=== PATIENT | male | born 1945 | race American Indian/Alaskan Native ===

== ENCOUNTER 2020-08-31 11:35 | Inpatient (IN) | payer MEDICARE ==
[2020-08-31] MEDS ORDERED: hydrALAZINE 20 MG/1 ML INJ IV PRN (12:50)
[2020-08-31] MEDS ORDERED: ALBUTEROL 2.5 MG/3 ML NEBU IH PRN (12:50)
[2020-08-31] MEDS ORDERED: ONDANSETRON 4 MG ODT TAB PO PRN (12:50)
[2020-08-31] MEDS ORDERED: POLYETHYLENE GLYCOL 3350 17 GM POWDER PO PRN (12:50)
[2020-08-31] MEDS: ENOXAPARIN 40 MG/0.4 ML INJ SUB-Q SCH (22:05)
[2020-08-31] MEDS: levETIRAcetam 500 MG TAB PO SCH (22:06)
[2020-08-31] MEDS: ACETAMINOPHEN 325 MG TAB PO PRN (22:06)
[2020-09-01 05:00] LABS: Hematocrit 33.3 % (35.5-45.6); Mean Corpuscular HGB Conc 33 % (32-34); Mean Corpuscular Volume 87 fl (84-94); Platelet Count 213 K/mm3 (140-440); Red Blood Count 3.82 M/mm3 (3.65-5.03); Red Cell Distribution Width 15.2 % (13.2-15.2)
[2020-09-01 05:19] LABS: Alanine Aminotransferase 47 units/L (7-56); Albumin 3.2 g/dL (3.9-5); Blood Urea Nitrogen 22 mg/dL (9-20); Calcium 8.5 mg/dL (8.4-10.2); Hemolysis Index 4
[2020-09-01 05:20] LABS: BUN/Creatinine Ratio 31
[2020-09-01 06:09] LABS: Total Cells Counted 100
[2020-09-01 06:10] LABS: Large Platelets Few; Platelet Estimate Consistent w Auto; RBC Morphology Normal
[2020-09-01] MEDS: levETIRAcetam 500 MG TAB PO SCH ×2 (07:42→23:31)
[2020-09-01] MEDS: ASPIRIN EC 81 MG TAB PO SCH (07:42)
[2020-09-01] MEDS: NICOTINE 7 MG/24 HR PATCH TD SCH (07:42)
[2020-09-01] MEDS: LISINOPRIL 20 MG TAB PO SCH (07:43)
[2020-09-01] MEDS: amLODIPine 10 MG TAB PO SCH (07:43)
[2020-09-01] MEDS ORDERED: METOPROLOL SUCCINATE XL 50 MG TAB PO SCH (08:00)
--- NOTE | 2020-09-01 09:11 | History and Physical Report ---
History of Present Illness Date: 09/01/20 Date of admission: 08/31/20 12:42 Chief Complaint: CVA History of present illness: 75-year-old male who was admitted outside hospital after having new onset slurred speech and aphasia. 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 Currently undergoing home health physical therapy and is able to walk short distances with a walker. Work-up showed a subacute infarct in the right hemisphere on MRI brain. EEG showed disorganized tracings and the patient was started on Keppra. Apparently patient has a reaction to Lipitor and instead takes lovastatin. Patient also has BPH but does not tolerate Flomax. After the patient was medically stabilized they were transferred for further rehabilitation. All available medical records have been reviewed. Plan of care was discussed with patient. Approximately 45 minutes was invested reviewing all available records from the outside hospital. Unfortunately the patient was discharged to us yesterday with preliminary orders and an updated set of orders did come in with the EMS transportation. Medication and diet orders have been changed accordingly. Apparently metoprolol was stopped due to persistent bradycardia. Currently the patient does not show any signs of bradycardia but we will discontinue the metoprolol and monitor blood pressure and heart rate accordingly and restart if needed. Patient was also changed to mechanical soft diet with chopped meats which has been adjusted currently. This is after breakfast and the patient likely obtained a regular consistency meal for breakfast. Also after evaluating the patient became very obvious that the patient does have some level of dementia. He thinks that he is 72 years old, does not know the month or the year but can tell me that he was born in [birth year] (he is actually 75 years old). Uncertain of the rest of the information that he provided as to whether or not it is reliable. Will need to contact his daughter whom he states he lives with in order to confirm. Past History Past Medical History: hypertension, seizures, stroke, other (Dementia) Past Surgical History: No surgical history (Patient denies however not necessarily a good historian) Social history: lives with family, smoking (Patient states he quit however records show that he is still currently smoking.). denies: alcohol abuse (Occasional use) Family history: no significant family history (Patient denies but not a good historian) Medications and Allergies Allergies Allergy/AdvReac Type Severity Reaction Status Date / Time No Known Allergies Allergy Unverified 09/24/13 14:15 Home Medications Medication Instructions Recorded Confirmed Last Taken Type Polyvinyl Alcohol/Povidone/Pf 1 each OU BID 09/24/13 09/24/13 Unknown History [Refresh Classic Eye Drops 0.5/0.6%] Aspirin [Aspirin BABY CHEW TAB] 81 mg PO QDAY #30 tab.chew 10/16/13 Unknown Rx Famotidine [Pepcid] 20 mg PO DAILY #30 tablet 10/16/13 Unknown Rx Multivitamin Tab [Multiple Vitamin 1 each PO QDAY #30 tablet 10/16/13 Unknown Rx TAB (Theragran)] Rosuvastatin (Nf) [Crestor] 20 mg PO QHS #30 tablet 10/16/13 Unknown Rx Sennosides Tab [Senokot] 8.6 mg PO Q12H PRN #30 tablet 10/16/13 Unknown Rx amLODIPine 10 mg PO QDAY #30 tablet 10/16/13 Unknown Rx carvediloL [Coreg] 6.25 mg PO BID #60 tablet 10/16/13 Unknown Rx Active Meds: Active Medications Acetaminophen (Acetaminophen 325 Mg Tab) 650 mg PO Q6H PRN PRN Reason: Non Cardiac Pain or Temp>100.5 Last Admin: 08/31/20 22:06 Dose: 650 mg Documented by: Albuterol (Albuterol 2.5 Mg/3 Ml Nebu) 2.5 mg IH Q4HRT PRN PRN Reason: Shortness Of Breath Amlodipine Besylate (Amlodipine 10 Mg Tab) 10 mg PO QDAY [facility] Last Admin: 09/01/20 07:43 Dose: Not Given Documented by: Aspirin (Aspirin Ec 81 Mg Tab) 81 mg PO QDAY [facility] Last Admin: 09/01/20 07:42 Dose: 81 mg Documented by: Bisacodyl (Bisacodyl 10 Mg Rect Supp) 10 mg MO QDAY PRN PRN Reason: Constipation Enoxaparin Sodium (Enoxaparin 40 Mg/0.4 Ml Inj) 40 mg SUB-Q QDAY@2200 [facility]; Protocol Last Admin: 08/31/20 22:05 Dose: 40 mg Documented by: Hydralazine HCl (Hydralazine 20 Mg/1 Ml Inj) 10 mg IV Q4HR PRN PRN Reason: Hypertension Levetiracetam (Levetiracetam 500 Mg Tab) 500 mg PO BID [facility] Last Admin: 09/01/20 07:42 Dose: 500 mg Documented by: Lisinopril (Lisinopril 20 Mg Tab) 20 mg PO QDAY [facility] Last Admin: 09/01/20 07:43 Dose: Not Given Documented by: Metoprolol Succinate (Metoprolol Succinate Xl 50 Mg Tab) 50 mg PO QDAY [facility] Last Admin: 09/01/20 07:43 Dose: Not Given Documented by: Nicotine (Nicotine 7 Mg/24 Hr Patch) 7 mg TD QDAY [facility] Last Admin: 09/01/20 07:42 Dose: 7 mg Documented by: Ondansetron HCl (Ondansetron 4 Mg Odt Tab) 4 mg PO Q8H PRN PRN Reason: Nausea And Vomiting Polyethylene Glycol (Polyethylene Glycol 3350 17 Gm Powder) 17 gm PO QDAY PRN PRN Reason: Constipation Review of Systems All systems: negative (Rehab review of system) Constitutional: fatigue, weakness Ears, nose, mouth and throat: no decreased hearing, no vertigo Cardiovascular: no chest pain, no rapid/irregular heart beat Respiratory: no cough, no hemoptysis, no shortness of breath Gastrointestinal: no abdominal pain, no nausea, no vomiting, no diarrhea, no constipation Musculoskeletal: no arm numbness/tingling, no leg numbness/tingling Integumentary: no rash, no pruritis, no redness, no sores Neurological: weakness, seizures, lack of coordination, confusion, memory loss, gait dysfunction Psychiatric: memory loss, no hypersomnia Exam - Exam Narrative exam: MUSCULOSKELETAL SPECIALTY EXAM CONSTITUTIONAL: Well developed, well nourished, appropriately groomed, thin. LEFT hand dominant. LYMPHATIC: No appreciable abnormalities palpable in neck RESPIRATORY: Clear to auscultation bilaterally, no increased work of breathing CARDIOVASCULAR: Regular Rate/ Rhythm, no swelling, edema or tenderness in BUE or BLE. All extremities warm. GI: + bowel sounds, soft, NTTP, nondistended. INTEGUMENTARY: Normal, no lesion, rash, masses or bruising noted in extremities. MUSCULOSKELETAL: BUE and BLE normal without defect, crepitus, subluxation, effusion, arthritic changes or TTP. R 4/5 L 4/5 ROM slightly decreased in upper extremities and lower extremities, passive okay Tone no increased tone noted NEURO: Cranial nerves II through XII grossly intact Sensation slightly decreased on right, but uncertain of validity of patient's spine Reflexes 2+ bilaterally at biceps, brachioradialis and patella. No clonus at ankles. Coordination impaired in BUE. No tremor noted in 4 extremities. Naming and repetition intact. Follows 2 step commands. Aphasia not appreciated Dysarthria not appreciated Dysphagia present, patient still has food in his mouth from working with speech therapy earlier Neglect not appreciated POSTURE and GAIT: Sitting posture good. Balance appears decreased. Gait slow with narrow-base gai t and crouched knees. PSYCH: Alert, oriented x1, affect appears euthymic. Insight appears impaired. - Constitutional Vitals: Vital Signs - 12hr 08/31/20 09/01/20 09/01/20 21:46 04:19 07:25 Temperature 98.8 F 97.7 F 97.7 F Pulse Rate 85 76 76 Respiratory 20 16 16 Rate Blood Pressure 125/67 112/62 113/55 O2 Sat by Pulse 98 98 99 Oximetry 09/01/20 07:43 Temperature Pulse Rate 68 Respiratory Rate Blood Pressure 103/65 O2 Sat by Pulse Oximetry - Labs CBC & Chem 7: 09/01/20 04:22 09/01/20 04:22 Labs: Laboratory Results - last 72 hr 09/01/20 09/01/20 04:22 04:22 WBC 3.7 L RBC 3.82 Hgb 11.0 L Hct 33.3 L MCV 87 MCH 29 MCHC 33 RDW 15.2 Plt Count 213 Add Manual Diff Complete Total Counted 100 Seg Neutrophils % Gallery Director Seg Neuts % (Manual) 31.0 L Lymphocytes % (Manual) 56.0 H Monocytes % (Manual) 8.0 H Basophils % (Manual) 5.0 H Nucleated RBC % Not Reportable Seg Neutrophils # Man 1.1 L Band Neutrophils # 0.0 Lymphocytes # (Manual) 2.1 Abs React Lymphs (Man) 0.0 Monocytes # (Manual) 0.3 Eosinophils # (Manual) 0.0 Basophils # (Manual) 0.2 H Metamyelocytes # 0.0 Myelocytes # 0.0 Promyelocytes # 0.0 Blast Cells # 0.0 WBC Morphology Not Reportable Hypersegmented Neuts Not Reportable Hyposegmented Neuts Not Reportable Hypogranular Neuts Not Reportable Smudge Cells Not Reportable Toxic Granulation Not Reportable Toxic Vacuolation Not Reportable Dohle Bodies Not Reportable Pelger-Huet Anomaly Not Reportable Keli Rods Not Reportable Platelet Estimate Consistent w auto Clumped Platelets Not Reportable Plt Clumps, EDTA Not Reportable Large Platelets Few Giant Platelets Not Reportable Platelet Satelliting Not Reportable Plt Morphology Comment Not Reportable RBC Morphology Normal Dimorphic RBCs Not Reportable Polychromasia Not Reportable Hypochromasia Not Reportable Poikilocytosis Not Reportable Anisocytosis Not Reportable Microcytosis Not Reportable Macrocytosis Not Reportable Spherocytes Not Reportable Pappenheimer Bodies Not Reportable Sickle Cells Not Reportable Target Cells Not Reportable Tear Drop Cells Not Reportable Ovalocytes Not Reportable Helmet Cells Not Reportable Sand[place] Bodies Not Reportable [place] Rings Not Reportable Puja Cells Not Reportable Bite Cells Not Reportable Crenated Cell Not Reportable Elliptocytes Not Reportable Acanthocytes (Spur) Not Reportable Rouleaux Not Reportable Hemoglobin C Crystals Not Reportable Schistocytes Not Reportable Malaria parasites Not Reportable Benjamín Bodies Not Reportable Hem Pathologist Commnt No Sodium 137 Potassium 4.1 Chloride 101.2 Carbon Dioxide 29 Anion Gap 11 BUN 22 H Creatinine 0.7 L Estimated GFR > 60 BUN/Creatinine Ratio 31 Glucose 86 Calcium 8.5 Total Bilirubin 0.20 AST 46 H ALT 47 Alkaline Phosphatase 60 Total Protein 5.8 L Albumin 3.2 L Albumin/Globulin Ratio 1.2 Assessment and Plan Assessment and plan: Patient was assessed and evaluated for Acute Inpatient Rehab Unit. Due to the patients above-mentioned medical complexity, along with decreased functional mobility and self care, this patient continues to require and be a ppropriate for a comprehensive, multidisciplinary [id number] rehabilitation program. These needs cannot be met in an outpatient or other less intensive setting. The patient would continue to benefit from skilled therapy intervention for at least 3 hours per day, five days a week, with techni ques specific to the needs of the patient to improve function, activities of daily living, and reintegration into the community. The patient continues to require: -- OT to improve ROM, self-care, and learn use of adaptive equipment -- PT to improve strength and balance, functional transfers, and ambulation with energy conservation techniques to improve functional mobility -- TOOL CRIB LEAD to address cognitive deficits and swallowing ability -- 24 hour RN to ensure and prevent skin breakdown, promote progressive independence while ensuring safety, ensure education regarding medications, and incorporation of the rehabilitation at the bedside -- 24 hour Propagation Worker to coordinate this interdisciplinary program, and to manage/prevent complications as a result of the patients medical comorbidities. -Plan of care by day 4 -Weekly team conferences With such a program, there is a reasonable certainty that the goals individualized for this patient can be achieved within the specified length of stay. CVA, subacute: Continue Secondary Stroke Prevention (Antithrombotic, Statin (Goal LDL-C <70), BP control (Goal <140/90), GLU control (Goal A1c <7), and lifestyle modification). Monitor for recurrent stroke or post-stroke recrudescence. Continue neuromotor therapy as above. Family training when available. Monitor for post stroke depression, cognitive deficits, seizure, dysphagia, aphasia, shoulder hand syndrome, sensory deficits, spasticity, bowel/bladder deficits, sleep disturbance, vision deficits and DVT. Prognosis for recovery and Secondary Stroke Prevention discussed. Follow up with Neurology. No driving until cleared by Neurologist. Dysphagia: Continue speech therapy to improve safe swallowing and advance diet as needed. Patient did not initially have orders for dysphagia diet however these were received with the patient at a later time. Have adjusted meals and speech therapy has further adjusted the patient's diet to include nectar thick liquids. Hypertension: Continue medication. Monitor blood pressure. Adjust medications as needed for normotension. Hold for hypotension. Goal SBP <140, Seizure: Continue seizure precautions and Keppra. Monitor for any adverse even ts or seizure activity. Patient will need follow-up with neurologist as an outpatient. Anemia: Improving from outside hospital. Continue to monitor CBC and transfuse for hemoglobin less than 7. Normocytic anemia Protein calorie malnutrition: Consulted dietitian. We will continue supplementation once ordered and attempt to improve patient's nutritional status. Dementia: Diagnosis appears obvious. Will have speech therapy continue to work with the patient to improve his functioning and coping mechanisms. This was not a diagnosis which was previously disclosed to us and is not in his medical record that we have seen. Have first opportunity will discuss the diagnosis with the daughter so that she can have further follow-up with neurology as an outpatient for treatment and support guidelines. ADL dysfunction: OT will work on improving ability to perform ADLs (including assistive devices) to increase independence and decrease caregiver burden and improve functional transfers and mobility training. Difficulty walking: PT will work on gait training and proper use of assistive devices and advance as appropriate to use of stairs and outside ambulation on uneven surfaces. Unsteadiness on feet: PT will work on improving static and dynamic sitting and standing balance as well as proper use of assistive devices to decrease risk of falls. Abnormality of gait: PT will work to improve safety and efficiency of gait through neuromotor training and gait training along with instruction on proper use of assistive devices. Muscle weakness: PT & OT will work on strengthening exercises to improve functional strength including mixture of closed and open kinetic chain exercises. Debility: PT & OT will work on improving overall functional status to improve participation with ADLs, mobility and social involvement. Fatigue: PT & OT will work on improving endurance through aerobic exercises and therapeutic activity while monitoring patients tolerance for activity and vital signs as needed. DVT ppx: Lovenox Pain: Continue physical modalities in therapy and pain medications as needed to achieve functional pain control. Sleep: Monitor and address as needed. Bowel: Monitor and address as needed. Appetite: Monitor and address as needed. Discharge planning: Pending therapy progress and care plan meeting. Will continue discussion with therapy team, SW, patient and family. Restrictions/ Precautions: Falls, seizure, cognition WB status: FWB Functional Hx: ADLs: Independent Cognition: Independent Mobility: No AD Barriers to Discharge: Decreased mobility and ability to perform self care, balance deficits, weakness Estimated Length of Stay: 1418 days Discharge Destination: Home with family POST ADMISSION PHYSICIAN EVALUATION I have examined the patient and find that functional status, medical condition and appropriateness for IR[facility] admission are essentially unchanged from those described in the preadmission screening. Will monitor for worsening seizure acti vity, neurologic changes, posterior depression, shoulder-hand syndrome, stroke recrudescence DVT/PE, bowel and bladder complications and complications due to hypertension, anemia, malnutrition and electrolyte abnormalities. Will attempt to avoid occurrence of these issues or treat them if they present themselves.
[2020-09-01] MEDS: ENOXAPARIN 40 MG/0.4 ML INJ SUB-Q SCH (23:31)
[2020-09-02] MEDS: LISINOPRIL 20 MG TAB PO SCH (08:49)
[2020-09-02] MEDS: ASPIRIN EC 81 MG TAB PO SCH (08:49)
[2020-09-02] MEDS: amLODIPine 10 MG TAB PO SCH (08:49)
[2020-09-02] MEDS: levETIRAcetam 500 MG TAB PO SCH ×2 (08:50→21:35)
[2020-09-02] MEDS: NICOTINE 7 MG/24 HR PATCH TD SCH (08:50)
--- NOTE | 2020-09-02 12:05 | Progress Note ---
Subjective Date of service: 09/02/20 Principal diagnosis: CVA Interval history: 75-year-old male who was admitted outside hospital after having new onset slurred speech and aphasia. 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 Currently undergoing home health physical therapy and is able to walk short distances with a walker. Work-up showed a subacute infarct in the right hemisphere on MRI brain. EEG showed disorganized tracings and the patient was started on Keppra. Apparently patient has a reaction to Lipitor and instead takes lovastatin. Patient also has BPH but does not tolerate Flomax. After the patient was medically stabilized they were transferred for further rehabilitation. All available medical records have been reviewed. Plan of care was discussed with patient. Interval History: Patient is participating in therapy and making reasonable progress. Taking rest breaks as needed. +BM. Denies pain, palpitations, dyspnea, cough, N/V, weakness, or joint pain. CVA, subacute: Continue monitor patient and provide supportive care. Monitor for worsening neurologic condition, shoulder-hand syndrome, post drug depression other signs and symptoms indicative of need to evaluate patient again with advanced imaging. Continue secondary stroke prevention. Seizure disorder: Seizure precautions have been ordered, patient continues on Keppra. Will need to follow-up with neurology at discharge. No episodes of seizures to this point of the admission. Dysphagia: Patient's diet was downgraded by speech therapy yesterday after evaluation. We will continue the patient on current modified diet and adjust as able with speech therapy with a goal of returning back to normal diet if at all possible. Hypertension: Continue to monitor blood pressure with a goal of less than 140/90. Adjust medications as needed to reach goal while avoiding hypotension. Blood pressure is slightly high today, will monitor and look to adjust over the next couple of days if he does not normalize. Anemia: This has improved since outside hospital, will continue to monitor and possibly look for other avenues of treatment if the patient does not continue to improve with our next lab check. Normocytic currently Protein calorie malnutrition: Have requested dietitian evaluation. Will need to monitor the patient's oral intake is since he is on modified diet and ensure that he is getting enough nutrition, may need to order supplements but these will need to be thickened. Dementia: Appears to be an undiagnosed issue. Will attempt to call daughter today and speak with her concerning patient's prior functioning at home. Patient will need to follow-up with neurology as an outpatient for further tr eatment and work-up. All records, vitals, labs and medications were reviewed. No other issues per patient, nursing or therapy. Objective - Exam Narrative Exam: MUSCULOSKELETAL SPECIALTY EXAM CONSTITUTIONAL: Well developed, well nourished, appropriately groomed, thin. LEFT hand dominant. RESPIRATORY: Clear to auscultation bilaterally, no increased work of breathing CARDIOVASCULAR: Regular Rate/ Rhythm, no swelling, edema or tenderness in BUE or BLE. All extremities warm. GI: + bowel sounds, soft, NTTP, nondistended. INTEGUMENTARY: Normal, no lesion, rash, masses or bruising noted in extremities. MUSCULOSKELETAL: BUE and BLE normal without defect, crepitus, subluxation, effusion, arthritic changes or TTP. R 4/5 L 4/5 ROM slightly decreased in upper extremities and lower extremities, passive okay Tone no increased tone noted NEURO: Cranial nerves II through XII grossly intact Sensation slightly decreased on right, but uncertain of validity of patient's spine No tremor noted in 4 extremities. Naming and repetition intact. Follows 2 step commands. Aphasia not appreciated Dysarthria not appreciated Dysphagia present Neglect not appreciated POSTURE and GAIT: Sitting posture good. Balance appears decreased. Gait slow with narrow-base gait and crouched knees. PSYCH: Alert, oriented x1, affect appears euthymic. Insight appears impaired. - Constitutional Vitals: Vital Signs - 12hr 09/02/20 09/02/20 09/02/20 05:12 07:32 08:49 Temperature 97.6 F 97.5 F L Pulse Rate 83 84 99 H Respiratory 18 18 Rate Blood Pressure 146/68 159/78 Blood Pressure 125/64 [Right] O2 Sat by Pulse 99 95 Oximetry 09/02/20 11:49 Temperature Pulse Rate Respiratory 18 Rate Blood Pressure Blood Pressure [Right] O2 Sat by Pulse Oximetry - Allied health notes Allied health notes reviewed: nursing, PT, ST, OT FIMS assessment as documented by PT/OT/ST: Grooming Patient cleans teeth/dentures: Yes Patient byrne/brushes hair: Yes Patient washes, rinses and Yes dries face: Patient washes, rinses and Yes dries hands: Patient shaves: No Patient performs (no make-up/ 4/4 (100%) shaving): Grooming FIM Score 5. Supervision ([place] applies toothpaste or opens containers.) Toileting Patient able to: Adjust clothes before,Clean self,Adjust clothes after Patient able to perform: 3/3 (100%) Toileting FIM Score 4. Minimal Assistance (Patient = 75% or more. Needs touching.) Social interaction/Memory/Problem solving Social Interaction FIM Score 5. Supervision (Needs supv. <10%. Needs encouragement to participate.) Memory FIM Score 2. Maximal Assistance (Recognizes and remembers 25-49%.) Problem Solving FIM Score 2. Maximal Assistance (Solves problems 25-49% or needs restraint.) Transfers Mode of Locomotion: Wheelchair Bed/Chair/Wheelchair Transfers 4. Minimal Assistance (Patient = 75% or more. FIM Score Needs touching.) Patient transferred to: Shower Shower Transfers FIM Score 4. Minimal Assistance (Patient = 75% or more. Needs touching.) Locomotion- walk/wheelchair Ambulation Distance 25 Eating Eating FIM Score 5. Supervision/Set-Up (Needs help w/ containers, cutting meat, etc.) Dressing-Upper body Patient retrieves clothing No items: Patient applies/removes UE No: n/a prosthesis or orthosis: Upper Body Dressing FIM Score 5. Supv./Set-Up ([place] sets out clothes or applies pros./orth.) Dressing-lower body Patient retrieves clothing No items: Patient applies/removes LE No: n/a prosthesis or orthosis: Lower Body Dressing FIM Score 4. Minimal Assistance (Patient = 75% or more. Needs touching.) - Labs CBC & Chem 7: 09/01/20 04:22 09/01/20 04:22 Labs: Laboratory Results - last 72 hr 09/01/20 09/01/20 04:22 04:22 WBC 3.7 L RBC 3.82 Hgb 11.0 L Hct 33.3 L MCV 87 MCH 29 MCHC 33 RDW 15.2 Plt Count 213 Add Manual Diff Complete Total Counted 100 Seg Neutrophils % Safety Instruction Police Officer Seg Neuts % (Manual) 31.0 L Lymphocytes % (Manual) 56.0 H Monocytes % (Manual) 8.0 H Basophils % (Manual) 5.0 H Nucleated RBC % Not Reportable Seg Neutrophils # Man 1.1 L Band Neutrophils # 0.0 Lymphocytes # (Manual) 2.1 Abs React Lymphs (Man) 0.0 Monocytes # (Manual) 0.3 Eosinophils # (Manual) 0.0 Basophils # (Manual) 0.2 H Metamyelocytes # 0.0 Myelocytes # 0.0 Promyelocytes # 0.0 Blast Cells # 0.0 WBC Morphology Not Reportable Hypersegmented Neuts Not Reportable Hyposegmented Neuts Not Reportable Hypogranular Neuts Not Reportable Smudge Cells Not Reportable Toxic Granulation Not Reportable Toxic Vacuolation Not Reportable Dohle Bodies Not Reportable Pelger-Huet Anomaly Not Reportable Keli Rods Not Reportable Platelet Estimate Consistent w auto Clumped Platelets Not Reportable Plt Clumps, EDTA Not Reportable Large Platelets Few Giant Platelets Not Reportable Platelet Satelliting Not Reportable Plt Morphology Comment Not Reportable RBC Morphology Normal Dimorphic RBCs Not Reportable Polychromasia Not Reportable Hypochromasia Not Reportable Poikilocytosis Not Reportable Anisocytosis Not Reportable Microcytosis Not Reportable Macrocytosis Not Reportable Spherocytes Not Reportable Pappenheimer Bodies Not Reportable Sickle Cells Not Reportable Target Cells Not Reportable Tear Drop Cells Not Reportable Ovalocytes Not Reportable Helmet Cells Not Reportable [place] Bodies Not Reportable [place] Rings Not Reportable [place] Cells Not Reportable Bite Cells Not Reportable Crenated Cell Not Reportable Elliptocytes Not Reportable Acanthocytes ([place]) Not Reportable Rouleaux Not Reportable Hemoglobin C Crystals Not Reportable Schistocytes Not Reportable Malaria parasites Not Reportable [place] Bodies Not Reportable Hem Pathologist Commnt No Sodium 137 Potassium 4.1 Chloride 101.2 Carbon Dioxide 29 Anion Gap 11 BUN 22 H Creatinine 0.7 L Estimated GFR > 60 BUN/Creatinine Ratio 31 Glucose 86 Calcium 8.5 Total Bilirubin 0.20 AST 46 H ALT 47 Alkaline Phosphatase 60 Total Protein 5.8 L Albumin 3.2 L Albumin/Globulin Ratio 1.2 Assessment and Plan CVA, subacute: Continue Secondary Stroke Prevention (Antithrombotic, Statin (Goal LDL-C <70), BP control (Goal <140/90), GLU control (Goal A1c <7), and lifestyle modification). Monitor for recurrent stroke or post-stroke recrudescence. Continue neuromotor therapy as above. Family training when available. Monitor for post stroke depression, cognitive deficits, seizure, dysphagia, aphasia, shoulder hand syndrome, sensory deficits, spasticity, bowel/bladder deficits, sleep disturbance, vision deficits and DVT. Prognosis for recovery and Secondary Stroke Prevention discussed. Follow up with Neurology. No driving until cleared by Neurologist. Dysphagia: Continue speech therapy to improve safe swallowing and advance diet as needed. Patient did not initially have orders for dysphagia diet however these were received with the patient at a later time. Have adjusted meals and speech therapy has further adjusted the patient's diet to include nectar thick liquids. Hypertension: Continue medication. Monitor blood pressure. Adjust medications as needed for normotension. Hold for hypotension. Goal SBP <140, Seizure: Continue seizure precautions and Keppra. Monitor for any adverse events or seizure activity. Patient will need follow-up with neurologist as an outpatient. Anemia: Improving from outside hospital. Continue to monitor CBC and transfuse for hemoglobin less than 7. Normocytic anemia Protein calorie malnutrition: Consulted dietitian. We will continue supplement ation once ordered and attempt to improve patient's nutritional status. Dementia: Diagnosis appears obvious. Will have speech therapy continue to work with the patient to improve his functioning and coping mechanisms. This was not a diagnosis which was previously disclosed to us and is not in his medical record that we have seen. Have first opportunity will discuss the diagnosis with the daughter so that she can have further follow-up with neurology as an outpatient for treatment and support guidelines. ADL dysfunction: OT will work on improving ability to perform ADLs (including assistive devices) to increase independence and decrease caregiver burden and improve functional transfers and mobility training. Difficulty walking: PT will work on gait training and proper use of assistive devices and advance as appropriate to use of stairs and outside ambulation on uneven surfaces. Unsteadiness on feet: PT will work on improving static and dynamic sitting and standing balance as well as proper use of assistive devices to decrease risk of falls. Abnormality of gait: PT will work to improve safety and efficiency of gait through neuromotor training and gait training along with instruction on proper use of assistive devices. Muscle weakness: PT & OT will work on strengthening exercises to improve functional strength including mixture of closed and open kinetic chain exercises. Debility: PT & OT will work on improving overall functional status to improve participation with ADLs, mobility and social involvement. Fatigue: PT & OT will work on improving endurance through aerobic exercises and therapeutic activity while monitoring patients tolerance for activity and vital signs as needed. DVT ppx: Lovenox Pain: Continue physical modalities in therapy and pain medications as needed to achieve functional pain control. Sleep: Monitor and address as needed. Bowel: Monitor and address as needed. Appetite: Monitor and address as needed. Discharge planning: Pending therapy progress and care plan meeting. Will continue discussion with therapy team, SW, patient and family. Restrictions/ Precautions: Falls, seizure, cognition WB status: FWB Functional Hx: ADLs: Independent Cognition: Independent Mobility: No AD Barriers to Discharge: Decreased mobility and ability to perform self care, balance deficits, weakness Estimated Length of Stay: 1418 days Discharge Destination: Home with family
--- NOTE | 2020-09-02 18:16 | IRU Plan of Care ---
Interdisciplinary Plan of Care - IP IRU INTERDISCIPLINARY PLAN: [facility] Inpatient Rehab Unit Plan of Care IRU Interdisciplinary Care Plan Start: 08/31/20 19:34 Freq: Status: Active Protocol: Document 09/02/20 16:40 AB (Rec: 09/02/20 16:57 AB [id number]) Interdisciplinary Problem List Interdisciplinary Problem List Interdisciplinary Problem List Impaired Eating/Swallowing, Query Text:Answers will Trigger Problems Impaired Bathing/Grooming, and Outcomes on Worklist. Impaired Dressing,Impaired Mobility,Impaired Transfers, Impaired Toileting,Impaired Comprehension,Impaired Expression,Impaired Problem Solving,Impaired Memory, Knowledge Deficits,Discharge Concerns,Impaired Safety, Diabetes Education,Impaired Cardiovascular System IRU Interdisciplinary Care Plan Therapy Services Therapy Services Will Include: Physical Therapy,Occupational Query Text:Patient will be seen for a Therapy,Speech Therapy minimum of 3 hours of daily therapy 5 out of 7 days a week. Therapy intensity may be adjusted within a 7 consecutive day period to effectively serve the individual needs of the patient. Treatment Frequency/Intensity/Duration Treatment Frequency 5 days per week Treatment Intensity 3 hours per day Treatment Duration 14 days Problem Area: Eating/Swallowing Eating/Swallowing Outcomes Consume Least Restrictive Diet ,Feed Self Eating/Swallowing Interventions Compensatory Strategies, Neuromuscular Re-Education,ADL Training,Patient/Caregiver Education Problem Area: Bathing/Grooming Bathing/Grooming Outcomes Improve [place] w/ Grooming,Improve [place] w/ Bathing Bathing/Grooming Interventions ADL Training,Use of Assistive Devices,Therapeutic Exercise, Therapeutic Activity, Neuromuscular Re-Education, Balance Work,Activity Tolerance Work,Patient/ Caregiver Education Problem Area: Dressing Dressing Outcomes Improve [place] w/ UB Dressing,Improve [place] w/ LB Dressing Dressing Interventions ADL Training,Use of Assistive Devices,Neuromuscular Re- Education,Therapeutic Exercise ,Balance Work,Modalities, Patient/Caregiver Education Problem Area: Mobility Mobility Outcomes Improve [place] w/ Bed Mobility,Improve [place] w/ Ambulation,Improve [place] w/ Wheelchair Mobility Interventions Therapeutic Exercise, Neuromuscular Re-Ed.,Activity Tolerance Work,Use of Assistive Devices,Patient/ Caregiver Education,Bed Mobility Work,Gait Training Problem Area: Transfers Transfers Outcomes Improve [place] w/ Bed Transfers,Improve [place] w/ Car Transfers Transfers Interventions Transfer Training,Therapeutic Exercise,Neuromuscular Re- Education,Visual/Perceptual Training,Activity Tolerance Work,Modalities,Use of Assistive Devices,Patient/ Caregiver Education Problem Area: Bowel/Bladder Managment Bowel/Bladder Outcomes Bowel/Bladder Interventions Problem Area: Toileting Toileting Outcomes Toileting Interventions Problem Area: Nutrition Nutrition Outcomes Nutrition Interventions Problem Area: Comprehension Comprehension Outcomes Improve Comprehension,Follow Commands,Improve Communication Comprehension Interventions Receptive Language Tasks, Patient/Caregiver Education Problem Area: Expression Expression Outcomes Expression Interventions Problem Area: Problem Solving Problem Solving Outcomes Improve Problem Solving Problem Solving Interventions Cognitive Training,Safety Education,Patient/Caregiver Education Problem Area: Memory Memory Outcomes Use Memory Aids Memory Interventions Cognitive Training,Review of Precautions,Patient/Caregiver Education Problem Area: Pain Management Pain Management Outcomes Pain Management Interventions Problem Area: Knowledge Deficits Knowledge Deficits Outcomes Knowledge Deficits Interventions Problem Area: Skin/Tissue Integrity Skin/Tissue Integrity Outcomes Skin/Tissue Integrity Interventions Problem Area: Social Interaction Social Interaction Outcomes Social Interaction Interventions Problem Area: Adjustment to Disability Adjustment to Disability Outcomes Adjustment to Disability Interventions Problem Area: Discharge Concerns Discharge Concerns Outcomes Discharge w/ Necessary Equipment,Have Home Health/ Outpatient Services Discharge Concerns Interventions Discharge Planning,Family/ Caregiver Training Problem Area: Community Reintegration Community Reintegration Outcomes Community Reintegration Interventions Problem Area: Home Management Home Management Outcomes Improve [place] w/ Home Management Home Management Interventions Leisure Skills Development Problem Area: Safety Safety Outcomes Provide Safe Environment, Perform Selfcare Safely, Demonstrate Good Safety w/ Transfers/Mobility Safety Interventions Identify Fall Risk,[place] Pt. to Environment,Reduce Environmental Hazards, Implement Mechanical Devices, i.e. Chair Alarm (Post Fall Update),Re-Educate Patient/ Caregiver for Safety (Post Fall Update) Problem Area: Medication Education Medication Education Outcomes Patient/Caregiver will Verbalize Understanding of Medications Medication Education Interventions Explain Administration/Side Effects/Interactions Problem Area: Diabetes Education Diabetes Education Outcomes Demonstrate Knowledge of Resources Availlable in Diabetic Ed. Folder Diabetes Education Interventions Give Pt. Diabetes Education Folder,Discuss Pathophysiology of Diabetes Problem Area: Oxygenation Oxygenation Outcomes Oxygenation Interventions Problem Area: Cardiovascular Cardiovascular Outcomes Maintain or Improve Cardiovascular Status Cardiovascular Interventions Assess Vital Signs at least Every 4 hours Physician Only Medical Prognosis and Rehabilitation Potential (Completed by Physician) Fair rehab potential, fair medical prognosis This plan of care has been developed based on the findings from the pre- admission assessment, post admission physician evaluation, information gathered from the assessments from all therapy disciplines and other pertinent clinicians. The plan of care has been reviewed and discussed in collaboration with the interdisciplinary team. The plan of care will be reviewed and updated at least weekly.
[2020-09-02] MEDS: ENOXAPARIN 40 MG/0.4 ML INJ SUB-Q SCH (21:35)
[2020-09-03] MEDS: amLODIPine 10 MG TAB PO SCH (07:33)
[2020-09-03] MEDS: levETIRAcetam 500 MG TAB PO SCH ×2 (07:33→22:05)
[2020-09-03] MEDS: LISINOPRIL 20 MG TAB PO SCH (07:33)
[2020-09-03] MEDS: ASPIRIN EC 81 MG TAB PO SCH (07:33)
[2020-09-03] MEDS: NICOTINE 7 MG/24 HR PATCH TD SCH (07:42)
--- NOTE | 2020-09-03 10:02 | Progress Note ---
Subjective Date of service: 09/03/20 Principal diagnosis: CVA Interval history: 75-year-old male who was admitted outside hospital after having new onset slurred speech and aphasia. 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 Currently undergoing home health physical therapy and is able to walk short distances with a walker. Work-up showed a subacute infarct in the right hemisphere on MRI brain. EEG showed disorganized tracings and the patient was started on Keppra. Apparently patient has a reaction to Lipitor and instead takes lovastatin. Patient also has BPH but does not tolerate Flomax. After the patient was medically stabilized they were transferred for further rehabilitation. All available medical records have been reviewed. Plan of care was discussed with patient. Interval History: Patient is participating in therapy and making reasonable progress. Taking rest breaks as needed. -BM. Denies pain, palpitations, dyspnea, cough, N/V, or joint pain. CVA, subacute: Continue monitor patient and provide supportive care. Monitor for worsening neurologic condition, shoulder-hand syndrome, post drug depression other signs and symptoms indicative of need to evaluate patient again with advanced imaging. Continue secondary stroke prevention. Seizure disorder: Seizure precautions have been ordered, patient continues on Keppra. Will need to follow-up with neurology at discharge. No episodes of seizures to this point of the admission. Dysphagia: Patient's diet was downgraded by speech therapy after evaluation, will plan to do MBS on Saturday. We will continue the patient on current modified diet and adjust as able with speech therapy with a goal of returning back to normal diet if at all possible. Hypertension: Continue to monitor blood pressure with a goal of less than 140 /90. Adjust medications as needed to reach goal while avoiding hypotension. Blood pressure is improved today, was high previously, will monitor and look to adjust over the next couple of days if he does not normalize. Anemia: This has improved since outside hospital, will continue to monitor and work-up for anemia looking for nutritional deficits. Normocytic currently. Recheck labs on Saturday to trend hemoglobin. Protein calorie malnutrition: Have requested dietitian evaluation. Supplements started Dementia: Appears to be an undiagnosed issue. Patient's daughter states that she suspected this approximately a year ago. Based on what we see, clinically the patient does have dementia. Patient will need to follow-up with neurology as an outpatient for further treatment and work-up. Constipation: Medications escalated for improvement in bowel movements. All records, vitals, labs and medications were reviewed. No other issues per patient, nursing or therapy. Objective - Exam Narrative Exam: MUSCULOSKELETAL SPECIALTY EXAM CONSTITUTIONAL: Well developed, well nourished, appropriately groomed, thin. LEFT hand dominant. RESPIRATORY: Clear to auscultation bilaterally, no increased work of breathing CARDIOVASCULAR: Regular Rate/ Rhythm, no swelling, edema or tenderness in BUE or BLE. All extremities warm. GI: + bowel sounds, soft, NTTP, nondistended. INTEGUMENTARY: Normal, no lesion, rash, masses or bruising noted in extremities. MUSCULOSKELETAL: BUE and BLE normal without defect, crepitus, subluxation, effusion, arthritic changes or TTP. R 4/5 L 4/5 ROM slightly decreased in upper extremities and lower extremities, passive okay Tone no increased tone noted NEURO: Cranial nerves II through XII grossly intact Sensation slightly decreased on right, but uncertain of validity of patient's spine No tremor noted in 4 extremities. Naming and repetition intact. Follows 2 step commands. Aphasia not appreciated Dysarthria not appreciated Dysphagia present Neglect not appreciated POSTURE and GAIT: Sitting posture good. Balance appears decreased. Gait slow with narrow-base gait and crouched knees. PSYCH: Alert, oriented x1, affect appears euthymic. Insight appears impaired. - Constitutional Vitals: Vital Signs - 12hr 09/03/20 09/03/20 05:02 07:05 Temperature 98.3 F 97.3 F L Pulse Rate 77 64 Respiratory 16 18 Rate Blood Pressure 117/59 Blood Pressure 106/57 [Right] O2 Sat by Pulse 100 98 Oximetry - Allied health notes Allied health notes reviewed: nursing, PT, ST, OT FIMS assessment as documented by PT/OT/ST: Grooming Patient cleans teeth/dentures: Yes Patient byrne/brushes hair: Yes Patient washes, rinses and Yes dries face: Patient washes, rinses and Yes dries hands: Patient shaves: No Patient performs (no make-up/ 4/4 (100%) shaving): Grooming FIM Score 5. Supervision (Morrison applies toothpaste or opens containers.) Toileting Patient able to: Adjust clothes before,Clean self,Adjust clothes after Patient able to perform: 3/3 (100%) Toileting FIM Score 4. Minimal Assistance (Patient = 75% or more. Needs touching.) Social interaction/Memory/Problem solving Social Interaction FIM Score 5. Supervision (Needs supv. <10%. Needs encouragement to participate.) Memory FIM Score 2. Maximal Assistance (Recognizes and remembers 25-49%.) Problem Solving FIM Score 2. Maximal Assistance (Solves problems 25-49% or needs restraint.) Transfers Mode of Locomotion: Wheelchair Bed/Chair/Wheelchair Transfers 4. Minimal Assistance (Patient = 75% or more. FIM Score Needs touching.) Patient transferred to: Shower Shower Transfers FIM Score 4. Minimal Assistance (Patient = 75% or more. Needs touching.) Locomotion- walk/wheelchair Ambulation Distance 25 Eating Eating FIM Score 5. Supervision/Set-Up (Needs help w/ containers, cutting meat, etc.) Dressing-Upper body Patient retrieves clothing No items: Patient applies/removes UE No: n/a prosthesis or orthosis: Upper Body Dressing FIM Score 5. Supv./Set-Up (Morrison sets out clothes or applies pros./orth.) Dressing-lower body Patient retrieves clothing No items: Patient applies/removes LE No: n/a prosthesis or orthosis: Lower Body Dressing FIM Score 4. Minimal Assistance (Patient = 75% or more. Needs touching.) - Labs CBC & Chem 7: 09/01/20 04:22 09/01/20 04:22 Labs: Laboratory Results - last 72 hr 09/01/20 09/01/20 04:22 04:22 WBC 3.7 L RBC 3.82 Hgb 11.0 L Hct 33.3 L MCV 87 MCH 29 MCHC 33 RDW 15.2 Plt Count 213 Add Manual Diff Complete Total Counted 100 Seg Neutrophils % Factory Worker Seg Neuts % (Manual) 31.0 L Lymphocytes % (Manual) 56.0 H Monocytes % (Manual) 8.0 H Basophils % (Manual) 5.0 H Nucleated RBC % Not Reportable Seg Neutrophils # Man 1.1 L Band Neutrophils # 0.0 Lymphocytes # (Manual) 2.1 Abs React Lymphs (Man) 0.0 Monocytes # (Manual) 0.3 Eosinophils # (Manual) 0.0 Basophils # (Manual) 0.2 H Metamyelocytes # 0.0 Myelocytes # 0.0 Promyelocytes # 0.0 Blast Cells # 0.0 WBC Morphology Not Reportable Hypersegmented Neuts Not Reportable Hyposegmented Neuts Not Reportable Hypogranular Neuts Not Reportable Smudge Cells Not Reportable Toxic Granulation Not Reportable Toxic Vacuolation Not Reportable Dohle Bodies Not Reportable Pelger-Huet Anomaly Not Reportable Keli Rods Not Reportable Platelet Estimate Consistent w auto Clumped Platelets Not Reportable Plt Clumps, EDTA Not Reportable Large Platelets Few Giant Platelets Not Reportable Platelet Satelliting Not Reportable Plt Morphology Comment Not Reportable RBC Morphology Normal Dimorphic RBCs Not Reportable Polychromasia Not Reportable Hypochromasia Not Reportable Poikilocytosis Not Reportable Anisocytosis Not Reportable Microcytosis Not Reportable Macrocytosis Not Reportable Spherocytes Not Reportable Pappenheimer Bodies Not Reportable Sickle Cells Not Reportable Target Cells Not Reportable Tear Drop Cells Not Reportable Ovalocytes Not Reportable Helmet Cells Not Reportable [place] Bodies Not Reportable Ophiem Rings Not Reportable Bradford Cells Not Reportable Bite Cells Not Reportable Crenated Cell Not Reportable Elliptocytes Not Reportable Acanthocytes (Spur) Not Reportable Rouleaux Not Reportable Hemoglobin C Crystals Not Reportable Schistocytes Not Reportable Malaria parasites Not Reportable [place] Bodies Not Reportable Hem Pathologist Commnt No Sodium 137 Potassium 4.1 Chloride 101.2 Carbon Dioxide 29 Anion Gap 11 BUN 22 H Creatinine 0.7 L Estimated GFR > 60 BUN/Creatinine Ratio 31 Glucose 86 Calcium 8.5 Total Bilirubin 0.20 AST 46 H ALT 47 Alkaline Phosphatase 60 Total Protein 5.8 L Albumin 3.2 L Albumin/Globulin Ratio 1.2 Assessment and Plan CVA, subacute: Continue Secondary Stroke Prevention (Antithrombotic, Statin (Goal LDL-C <70), BP control (Goal <140/90), GLU control (Goal A1c <7), and lifestyle modification). Monitor for recurrent stroke or post-stroke recrudescence. Continue neuromotor therapy as above. Family training when available. Monitor for post stroke depression, cognitive deficits, seizure, dysphagia, aphasia, shoulder hand syndrome, sensory deficits, spasticity, bowel/bladder deficits, sleep disturbance, vision deficits and DVT. Prognosis for recovery and Secondary Stroke Prevention discussed. Follow up with Neurology. No driving until cleared by Neurologist. Dysphagia: Continue speech therapy to improve safe swallowing and advance diet as needed. Patient did not initially have orders for dysphagia diet however these were received with the patient at a later time. Have adjusted meals and speech therapy has further adjusted the patient's diet to include nectar thick liquids. Hypertension: Continue medication. Monitor blood pressure. Adjust medications as needed for normotension. Hold for hypotension. Goal SBP <140, Seizure: Continue seizure precautions and Keppra. Monitor for any adverse events or seizure activity. Patient will need follow-up with neurologist as an outpatient. Anemia: Improving from outside hospital. Continue to monitor CBC and transfuse for hemoglobin less than 7. Normocytic anemia Protein calorie malnutrition: Consulted dietitian. Continue supplementation and attempt to improve patient's nutritional status. Dementia: Clinical diagnosis based on interaction with the patient and speech therapy testing. Have contacted the daughter and she states she has suspected this for approximately a year. Patient will need to follow-up with neurology as an outpatient for further testing and treatment opportunities. Discussed with the daughter on Saturday that patient may need further care at home with increased supervision as time goes on. Constipation: Increase medications and monitor for resolution. Hold for loose stools ADL dysfunction: OT will work on improving ability to perform ADLs (including assistive devices) to increase independence and decrease caregiver burden and improve functional transfers and mobility training. Difficulty walking: PT will work on gait training and proper use of assistive devices and advance as appropriate to use of stairs and outside ambulation on uneven surfaces. Unsteadiness on feet: PT will work on improving static and dynamic sitting and standing balance as well as proper use of assistive devices to decrease risk of falls. Abnormality of gait: PT will work to improve safety and efficiency of gait through neuromotor training and gait training along with instruction on proper use of assistive devices. Muscle weakness: PT & OT will work on strengthening exercises to improve functional strength including mixture of closed and open kinetic chain exercises. Debility: PT & OT will work on improving overall functional status to improve participation with ADLs, mobility and social involvement. Fatigue: PT & OT will work on improving endurance through aerobic exercises and therapeutic activity while monitoring patients tolerance for activity and vital signs as needed. DVT ppx: Lovenox Pain: Continue physical modalities in therapy and pain medications as needed to achieve functional pain control. Sleep: Monitor and address as needed. Bowel: Monitor and address as needed. Appetite: Monitor and address as needed. Discharge planning: Pending therapy progress and care plan meeting. Will continue discussion with therapy team, SW, patient and family. Restrictions/ Precautions: Falls, seizure, cognition WB status: FWB Functional Hx: ADLs: Independent Cognition: Independent Mobility: No AD Barriers to Discharge: Decreased mobility and ability to perform self care, balance deficits, weakness Estimated Length of Stay: 1418 days Discharge Destination: Home with family
[2020-09-03] MEDS: ENOXAPARIN 40 MG/0.4 ML INJ SUB-Q SCH (22:05)
[2020-09-03] MEDS: ACETAMINOPHEN 325 MG TAB PO PRN (22:05)
[2020-09-04] MEDS: ASPIRIN EC 81 MG TAB PO SCH (11:07)
[2020-09-04] MEDS: levETIRAcetam 500 MG TAB PO SCH ×2 (11:08→22:23)
[2020-09-04] MEDS: NICOTINE 7 MG/24 HR PATCH TD SCH (11:08)
[2020-09-04] MEDS: LISINOPRIL 20 MG TAB PO SCH (11:08)
[2020-09-04] MEDS: amLODIPine 10 MG TAB PO SCH (11:09)
[2020-09-04] MEDS: ENOXAPARIN 40 MG/0.4 ML INJ SUB-Q SCH (22:23)
[2020-09-04] MEDS: ACETAMINOPHEN 325 MG TAB PO PRN (22:23)
[2020-09-05 07:10] LABS: Hematocrit 35.1 % (35.5-45.6); Hemoglobin 11.6 gm/dl (11.8-15.2); Mean Corpuscular HGB Conc 33 % (32-34); Mean Corpuscular Volume 88 fl (84-94); Platelet Count 198 K/mm3 (140-440); Red Cell Distribution Width 15.4 % (13.2-15.2)
[2020-09-05 07:35] LABS: BUN/Creatinine Ratio 19; Blood Urea Nitrogen 15 mg/dL (9-20); Calcium 9.4 mg/dL (8.4-10.2); Hemolysis Index 2; Iron 49 ug/dL (49-181); Prealbumin 0.196 g/L (0.200-0.400); Total Iron Binding Capacity 273 mcg/dL (250-450)
[2020-09-05] MEDS: amLODIPine 10 MG TAB PO SCH (07:43)
[2020-09-05] MEDS: LISINOPRIL 20 MG TAB PO SCH (07:43)
[2020-09-05] MEDS: levETIRAcetam 500 MG TAB PO SCH ×2 (07:43→22:38)
[2020-09-05] MEDS: ASPIRIN EC 81 MG TAB PO SCH (07:43)
[2020-09-05] MEDS: NICOTINE 7 MG/24 HR PATCH TD SCH (07:43)
--- NOTE | 2020-09-05 09:37 | Progress Note ---
Subjective Date of service: 09/05/20 Principal diagnosis: CVA Interval history: 75-year-old male who was admitted outside hospital after having new onset slurred speech and aphasia. 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 Currently undergoing home health physical therapy and is able to walk short distances with a walker. Work-up showed a subacute infarct in the right hemisphere on MRI brain. EEG showed disorganized tracings and the patient was started on Keppra. Apparently patient has a reaction to Lipitor and instead takes lovastatin. Patient also has BPH but does not tolerate Flomax. After the patient was medically stabilized they were transferred for further rehabilitation. All available medical records have been reviewed. Plan of care was discussed with patient. Interval History: Patient is participating in therapy and making reasonable progress. Taking rest breaks as needed. no BM charted, will discuss with nursing. Denies pain, palpitations, dyspnea, cough, N/V, or joint pain. CVA, subacute: Continue monitor patient and provide supportive care. Monitor for worsening neurologic condition, shoulder-hand syndrome, post drug depression other signs and symptoms indicative of need to evaluate patient again with advanced imaging. Continue secondary stroke prevention. Seizure disorder: Seizure precautions have been ordered, patient continues on Keppra. Will need to follow-up with neurology at discharge. No episodes of seizures to this point of the admission. Dysphagia: Patient's diet was downgraded by speech therapy after evaluation, will plan to do MBS today. We will continue the patient on current modified diet and adjust as able with speech therapy with a goal of returning back to normal diet if at all possible. Hypertension: Continue to monitor blood pressure with a goal of less than 140/90. Adjust medications as needed to reach goal while avoiding hypotension. Blood pressure is improved today, was high previously, will monitor and look to adjust over the next couple of days if he does not normalize. Anemia: This has improved since outside hospital, will continue to monitor and work-up for anemia looking for nutritional deficits. Normocytic currently. Labs show folate and iron deficiency, will replace Protein calorie malnutrition: Have requested dietitian evaluation. Prealbumin significantly decreased. Supplements started Dementia: Appears to be an undiagnosed issue. Patient's daughter states that she suspected this approximately a year ago. Based on what we see, clinically the patient does have dementia. Patient will need to follow-up with neurology as an outpatient for further treatment and work-up. Constipation: Medications escalated for improvement in bowel movements. All records, vitals, labs and medications were reviewed. No other issues per patient, nursing or therapy. Objective - Exam Narrative Exam: MUSCULOSKELETAL SPECIALTY EXAM CONSTITUTIONAL: Well developed, well nourished, appropriately groomed, thin. LEFT hand dominant. RESPIRATORY: Clear to auscultation bilaterally, no increased work of breathing CARDIOVASCULAR: Regular Rate/ Rhythm, no swelling, edema or tenderness in BUE or BLE. All extremities warm. GI: + bowel sounds, soft, NTTP, nondistended. INTEGUMENTARY: Normal, no lesion, rash, masses or bruising noted in extremities. MUSCULOSKELETAL: BUE and BLE normal without defect, crepitus, subluxation, effusion, arthritic changes or TTP. R 4/5 L 4/5 ROM slightly decreased in upper extremities and lower extremities, passive okay Tone no increased tone noted NEURO: Cranial nerves II through XII grossly intact Sensation slightly decreased on right No tremor noted in 4 extremities. Naming and repetition intact. Follows 2 step commands. Aphasia not appreciated Dysarthria not appreciated Dysphagia present Neglect not appreciated POSTURE and GAIT: Sitting posture good. Balance appears decreased. Gait slow with narrow-base gait and crouched knees. PSYCH: Alert, oriented x1, affect appears euthymic. Insight appears impaired. - Constitutional Vitals: Vital Signs - 12hr 09/05/20 09/05/20 07:34 07:43 Temperature 98.0 F Pulse Rate 67 67 Respiratory 16 Rate Blood Pressure 133/68 133/68 O2 Sat by Pulse 100 Oximetry - Allied health notes Allied health notes reviewed: nursing, PT, ST, OT FIMS assessment as documented by PT/OT/ST: Grooming Patient cleans teeth/dentures: Yes Patient byrne/brushes hair: Yes Patient washes, rinses and Yes dries face: Patient washes, rinses and Yes dries hands: Patient shaves: No Patient performs (no make-up/ 4/4 (100%) shaving): Grooming FIM Score 4. Minimal Assistance (Patient = 75% or more. Needs touching.) Toileting Patient able to: Adjust clothes before,Clean self,Adjust clothes after Patient able to perform: 3/3 (100%) Toileting FIM Score 4. Minimal Assistance (Patient = 75% or more. Needs touching.) Social interaction/Memory/Problem solving Social Interaction FIM Score 4. Minimal Assistance (Interacts appropriately 75-90%.) Memory FIM Score 4. Minimal Assistance (Recognizes and remembers 75-90%.) Problem Solving FIM Score 4. Minimal Assistance (Solves routine problems 75-90%.) Transfers Mode of Locomotion: Wheelchair Bed/Chair/Wheelchair Transfers 4. Minimal Assistance (Patient = 75% or more. FIM Score Needs touching.) Patient transferred to: Shower Shower Transfers FIM Score 4. Minimal Assistance (Patient = 75% or more. Needs touching.) Locomotion- walk/wheelchair Ambulation Distance 25 Eating Eating FIM Score 5. Supervision/Set-Up (Needs help w/ containers, cutting meat, etc.) Dressing-Upper body Patient retrieves clothing No items: Patient applies/removes UE No: n/a prosthesis or orthosis: Upper Body Dressing FIM Score 4. Minimal Assistance (Patient = 75% or more. Needs touching.) Dressing-lower body Patient retrieves clothing No items: Patient applies/removes LE No: n/a prosthesis or orthosis: Lower Body Dressing FIM Score 4. Minimal Assistance (Patient = 75% or more. Needs touching.) - Labs CBC & Chem 7: 09/05/20 06:08 09/05/20 06:08 Labs: Laboratory Results - last 72 hr 09/05/20 09/05/20 09/05/20 06:08 06:08 06:08 WBC 3.0 L RBC 4.00 Hgb 11.6 L Hct 35.1 L MCV 88 MCH 29 MCHC 33 RDW 15.4 H Plt Count 198 Sodium 139 Potassium 4.3 Chloride 101.7 Carbon Dioxide 30 Anion Gap 12 BUN 15 Creatinine 0.8 Estimated GFR > 60 BUN/Creatinine Ratio 19 Glucose 76 Calcium 9.4 Iron 49 TIBC 273 Ferritin 29.5 L Prealbumin 0.196 L Vitamin B12 Folate 09/05/20 09/05/20 06:08 06:08 WBC RBC Hgb Hct MCV MCH MCHC RDW Plt Count Sodium Potassium Chloride Carbon Dioxide Anion Gap BUN Creatinine Estimated GFR BUN/Creatinine Ratio Glucose Calcium Iron TIBC Ferritin Prealbumin Vitamin B12 512.6 Folate 6.71 L Assessment and Plan CVA, subacute: Continue Secondary Stroke Prevention (Antithrombotic, Statin (Goal LDL-C <70), BP control (Goal <140/90), GLU control (Goal A1c <7), and lifestyle modification). Monitor for recurrent stroke or post-stroke recrudescence. Continue neuromotor therapy as above. Family training when available. Monitor for post stroke depression, cognitive deficits, seizure, dysphagia, aphasia, shoulder hand syndrome, sensory deficits, spasticity, bowel/bladder deficits, sleep disturbance, vision deficits and DVT. Prognosis for recovery and Secondary Stroke Prevention discussed. Follow up with Neurology. No driving until cleared by Neurologist. Dysphagia: Continue speech therapy to improve safe swallowing and advance diet as needed. Patient did not initially have orders for dysphagia diet however these were received with the patient at a later time. Have adjusted meals and speech therapy has further adjusted the patient's diet to include nectar thick liquids. Hypertension: Continue medication. Monitor blood pressure. Adjust medications as needed for normotension. Hold for hypotension. Goal SBP <140, Seizure: Continue seizure precautions and Keppra. Monitor for any adverse e vents or seizure activity. Patient will need follow-up with neurologist as an outpatient. Anemia: Improving from outside hospital. Continue to monitor CBC and transfuse for hemoglobin less than 7. Deficiencies of iron and folate noted on labs, will replace Protein calorie malnutrition: Consulted dietitian. Continue supplementation and attempt to improve patient's nutritional status. Dementia: Clinical diagnosis based on interaction with the patient and speech therapy testing. Have contacted the daughter and she states she has suspected this for approximately a year. Patient will need to follow-up with neurology as an outpatient for further testing and treatment opportunities. Discussed with the daughter on Saturday that patient may need further care at home with increased supervision as time goes on. Constipation: Increase medications and monitor for resolution. Hold for loose stools ADL dysfunction: OT will work on improving ability to perform ADLs (including assistive devices) to increase independence and decrease caregiver burden and improve functional transfers and mobility training. Difficulty walking: PT will work on gait training and proper use of assistive devices and advance as appropriate to use of stairs and outside ambulation on uneven surfaces. Unsteadiness on feet: PT will work on improving static and dynamic sitting and standing balance as well as proper use of assistive devices to decrease risk of falls. Abnormality of gait: PT will work to improve safety and efficiency of gait through neuromotor training and gait training along with instruction on proper use of assistive devices. Muscle weakness: PT & OT will work on strengthening exercises to improve functional strength including mixture of closed and open kinetic chain exercises. Debility: PT & OT will work on improving overall functional status to improve participation with ADLs, mobility and social involvement. Fatigue: PT & OT will work on improving endurance through aerobic exercises and therapeutic activity while monitoring patients tolerance for activity and vital signs as needed. DVT ppx: Lovenox Pain: Continue physical modalities in therapy and pain medications as needed to achieve functional pain control. Sleep: Monitor and address as needed. Bowel: Monitor and address as needed. Appetite: Monitor and address as needed. Discharge planning: Pending therapy progress and care plan meeting. Will continue discussion with therapy team, SW, patient and family. Restrictions/ Precautions: Falls, seizure, cognition WB status: FWB Functional Hx: ADLs: Independent Cognition: Independent Mobility: No AD Barriers to Discharge: Decreased mobility and ability to perform self care, balance deficits, weakness Estimated Length of Stay: 1418 days Discharge Destination: Home with family
--- NOTE | 2020-09-05 11:38 | Fluoroscopy Report ---
MODIFIED BARIUM SWALLOW INDICATION: dysphagia TECHNIQUE: Swallowing was evaluated in the lateral position under direct fluoroscopy. FINDINGS: The patient was evaluated with thin liquids, nectar, puree and semisolid consistencies. One episode of aspiration was witnessed with thin liquid. No aspiration or penetration with nectar, p uree and semisolid consistencies. Premature spillage was seen with all consistencies. Please correlat e with the formal report by speech therapy. IMPRESSION: Aspiration was witnessed with thin liquids. Fluoroscopic time: 1.8 minutes Number of fluoroscopic images: 1 Signer Name: Jason Hendrickson Jr, MD Signed: 09/05/2020 11:33 AM Workstation Name: [id number]
[2020-09-05] MEDS: FOLIC ACID 1 MG TAB PO SCH (15:23)
[2020-09-05] MEDS: ENOXAPARIN 40 MG/0.4 ML INJ SUB-Q SCH (22:38)
[2020-09-05] MEDS: FERROUS SULFATE 325 MG TAB PO SCH (22:38)
--- NOTE | 2020-09-06 07:53 | Progress Note ---
Subjective Date of service: 09/06/20 Principal diagnosis: CVA Interval history: 75-year-old male who was admitted outside hospital after having new onset slurred speech and aphasia. 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 Currently undergoing home health physical therapy and is able to walk short distances with a walker. Work-up showed a subacute infarct in the right hemisphere on MRI brain. EEG showed disorganized tracings and the patient was started on Keppra. Apparently patient has a reaction to Lipitor and instead takes lovastatin. Patient also has BPH but does not tolerate Flomax. After the patient was medically stabilized they were transferred for further rehabilitation. All available medical records have been reviewed. Plan of care was discussed with patient. Interval History: Patient is participating in therapy and making reasonable progress. Taking rest breaks as needed. Positive BM earlier, but no BM charted, will discuss with nursing. Denies pain, palpitations, dyspnea, cough, N/V, or joint pain. CVA, subacute: Continue monitor patient and provide supportive care. Monitor for worsening neurologic condition, shoulder-hand syndrome, post drug depression other signs and symptoms indicative of need to evaluate patient again with advanced imaging. Continue secondary stroke prevention. Seizure disorder: Seizure precautions have been ordered, patient continues on Ke ppra. Will need to follow-up with neurology at discharge. No episodes of seizures to this point of the admission. Dysphagia: Patient's diet was downgraded by speech therapy after evaluation. MBS performed yesterday showed continued aspiration with thin liquids. We will continue the patient on current modified diet and adjust as able with speech therapy with a goal of returning back to normal diet if at all possible. Hypertension: Continue to monitor blood pressure with a goal of less than 140/90. Adjust medications as needed to reach goal while avoiding hypotension. Blood pressure is improved , will monitor and look to adjust over the next couple of days if he does not normalize. Anemia: This has improved since outside hospital, will continue to monitor and work-up for anemia looking for nutritional deficits. Normocytic currently. Labs show folate and iron deficiency, will replace Protein calorie malnutrition: Have requested dietitian evaluation. Prealbumin significantly decreased. Supplements started Dementia: Appears to be an undiagnosed issue. Patient's daughter states that she suspected this approximately a year ago. Based on what we see, clinically the patient does have dementia. Patient will need to follow-up with neurology as an outpatient for further treatment and work-up. Constipation: Medications escalated for improvement in bowel movements. All records, vitals, labs and medications were reviewed. No other issues per patient, nursing or therapy. Patient discussed during team conference today. Making slower progress. We did receive notification from the insurance [employer] that last covered day will be 09/10. Will contact family to have them come in for family training. Patient will need 24/ supervision while at home and will need to follow-up with neurology for further treatment of dementia. Would likely need rolling walker at discharge but will discuss further over the next few days to see if that need changes. Objective - Exam Narrative Exam: MUSCULOSKELETAL SPECIALTY EXAM CONSTITUTIONAL: Well developed, well nourished, appropriately groomed, thin. LEFT hand dominant. RESPIRATORY: Clear to auscultation bilaterally, no increased work of breathing CARDIOVASCULAR: Regular Rate/ Rhythm, no swelling, edema or tenderness in BUE or BLE. All extremities warm. GI: + bowel sounds, soft, NTTP, nondistended. INTEGUMENTARY: Normal, no lesion, rash, masses or bruising noted in extremities. MUSCULOSKELETAL: BUE and BLE normal without defect, crepitus, subluxation, effusion, arthritic changes or TTP. R 4/5 L 4/5 ROM slightly decreased in upper extremities and lower extremities, passive okay Tone no increased tone noted NEURO: Cranial nerves II through XII grossly intact Sensation slightly decreased on right No tremor noted in 4 extremities. Naming and repetition intact. Follows 2 step commands. Aphasia not appreciated Dysarthria not appreciated Dysphagia present Neglect not appreciated POSTURE and GAIT: Sitting posture good. Balance appears decreased. Gait slow with narrow-base gait and crouched knees. PSYCH: Alert, oriented x1, affect appears euthymic. Insight appears impaired. - Constitutional Vitals: Vital Signs - 12hr 09/06/20 05:22 Temperature 98.4 F Pulse Rate 74 Respiratory 18 Rate Blood Pressure 131/89 [Right] O2 Sat by Pulse 98 Oximetry - Allied health notes Allied health notes reviewed: nursing, PT, ST, OT FIMS assessment as documented by PT/OT/ST: Grooming Patient cleans teeth/dentures: Yes Patient byrne/brushes hair: Yes Patient washes, rinses and Yes dries face: Patient washes, rinses and Yes dries hands: Patient shaves: No Patient performs (no make-up/ / (100%) shaving): Grooming FIM Score 4. Minimal Assistance (Patient = 75% or more. Needs touching.) Toileting Patient able to: Adjust clothes before,Clean self,Adjust clothes after Patient able to perform: 3/3 (100%) Toileting FIM Score 4. Minimal Assistance (Patient = 75% or more. Needs touching.) Social interaction/Memory/Problem solving Social Interaction FIM Score 4. Minimal Assistance (Interacts appropriately 75-90%.) Memory FIM Score 4. Minimal Assistance (Recognizes and remembers 75-90%.) Problem Solving FIM Score 4. Minimal Assistance (Solves routine problems 75-90%.) Transfers Mode of Locomotion: Wheelchair Bed/Chair/Wheelchair Transfers 4. Minimal Assistance (Patient = 75% or more. FIM Score Needs touching.) Patient transferred to: Shower Shower Transfers FIM Score 4. Minimal Assistance (Patient = 75% or more. Needs touching.) Locomotion- walk/wheelchair Ambulation Distance 25 Eating Eating FIM Score 5. Supervision/Set-Up (Needs help w/ containers, cutting meat, etc.) Dressing-Upper body Patient retrieves clothing No items: Patient applies/removes UE No: n/a prosthesis or orthosis: Upper Body Dressing FIM Score 4. Minimal Assistance (Patient = 75% or more. Needs touching.) Dressing-lower body Patient retrieves clothing No items: Patient applies/removes LE No: n/a prosthesis or orthosis: Lower Body Dressing FIM Score 4. Minimal Assistance (Patient = 75% or more. Needs touching.) - Labs CBC & Chem 7: 09/05/20 06:08 09/05/20 06:08 Labs: Laboratory Results - last 72 hr 09/05/20 09/05/20 09/05/20 06:08 06:08 06:08 WBC 3.0 L RBC 4.00 Hgb 11.6 L Hct 35.1 L MCV 88 MCH 29 MCHC 33 RDW 15.4 H Plt Count 198 Sodium 139 Potassium 4.3 Chloride 101.7 Carbon Dioxide 30 Anion Gap 12 BUN 15 Creatinine 0.8 Estimated GFR > 60 BUN/Creatinine Ratio 19 Glucose 76 Calcium 9.4 Iron 49 TIBC 273 Ferritin 29.5 L Prealbumin 0.196 L Vitamin B12 Folate 09/05/20 09/05/20 06:08 06:08 WBC RBC Hgb Hct MCV MCH MCHC RDW Plt Count Sodium Potassium Chloride Carbon Dioxide Anion Gap BUN Creatinine Estimated GFR BUN/Creatinine Ratio Glucose Calcium Iron TIBC Ferritin Prealbumin Vitamin B12 512.6 Folate 6.71 L Assessment and Plan CVA, subacute: Continue Secondary Stroke Prevention (Antithrombotic, Statin (Goal LDL-C <70), BP control (Goal <140/90), GLU control (Goal A1c <7), and lifestyle modification). Monitor for recurrent stroke or post-stroke recrudescence. Continue neuromotor therapy as above. Family training when available. Monitor for post stroke depression, cognitive deficits, seizure, dysphagia, aphasia, shoulder hand syndrome, sensory deficits, spasticity, bowel/bladder deficits, sleep disturbance, vision deficits and DVT. Prognosis for recovery and Secondary Stroke Prevention discussed. Follow up with Neurology. No driving until cleared by Neurologist. Dysphagia: Continue speech therapy to improve safe swallowing and advance diet as needed. Patient did not initially have orders for dysphagia diet however these were received with the patient at a later time. Have adjusted meals and speech therapy has further adjusted the patient's diet to include nectar thick liquids. Hypertension: Continue medication. Monitor blood pressure. Adjust medications as needed for normotension. Hold for hypotension. Goal SBP <140, Seizure: Continue seizure precautions and Keppra. Monitor for any adverse events or seizure activity. Patient will need follow-up with neurologist as an outpatient. Anemia: Improving from outside hospital. Continue to monitor CBC and transfuse for hemoglobin less than 7. Deficiencies of iron and folate noted on labs, will replace Protein calorie malnutrition: Consulted dietitian. Continue supplementation and attempt to improve patient's nutritional status. Dementia: Clinical diagnosis based on interaction with the patient and speech therapy testing. Have contacted the daughter and she states she has suspected this for approximately a year. Patient will need to follow-up with neurology as an outpatient for further testing and treatment opportunities. Discussed with the daughter on Saturday that patient may need further care at home with increased supervision as time goes on. Constipation: Increase medications and monitor for resolution. Hold for loose stools ADL dysfunction: OT will work on improving ability to perform ADLs (including assistive devices) to increase independence and decrease caregiver burden and improve functional transfers and mobility training. Difficulty walking: PT will work on gait training and proper use of assistive de vices and advance as appropriate to use of stairs and outside ambulation on uneven surfaces. Unsteadiness on feet: PT will work on improving static and dynamic sitting and standing balance as well as proper use of assistive devices to decrease risk of falls. Abnormality of gait: PT will work to improve safety and efficiency of gait through neuromotor training and gait training along with instruction on proper use of assistive devices. Muscle weakness: PT & OT will work on strengthening exercises to improve functional strength including mixture of closed and open kinetic chain exercises. Debility: PT & OT will work on improving overall functional status to improve participation with ADLs, mobility and social involvement. Fatigue: PT & OT will work on improving endurance through aerobic exercises and therapeutic activity while monitoring patients tolerance for activity and vital signs as needed. DVT ppx: Lovenox Pain: Continue physical modalities in therapy and pain medications as needed to achieve functional pain control. Sleep: Monitor and address as needed. Bowel: Monitor and address as needed. Appetite: Monitor and address as needed. Discharge planning: Pending therapy progress and care plan meeting. Will continue discussion with therapy team, SW, patient and family. We will look to discharge towards the end of the week. Family will need to come in for family training prior or on day of discharge. Restrictions/ Precautions: Falls, seizure, cognition WB status: FWB Functional Hx: ADLs: Independent Cognition: Independent Mobility: No AD Barriers to Discharge: Decreased mobility and ability to perform self care, balance deficits, weakness Estimated Length of Stay: 1418 days Discharge Destination: Home with family
[2020-09-06] MEDS: FERROUS SULFATE 325 MG TAB PO SCH ×2 (09:20→22:10)
[2020-09-06] MEDS: amLODIPine 10 MG TAB PO SCH (09:20)
[2020-09-06] MEDS: ASPIRIN EC 81 MG TAB PO SCH (09:20)
[2020-09-06] MEDS: FOLIC ACID 1 MG TAB PO SCH (09:20)
[2020-09-06] MEDS: NICOTINE 7 MG/24 HR PATCH TD SCH (09:20)
[2020-09-06] MEDS: levETIRAcetam 500 MG TAB PO SCH ×2 (09:21→22:10)
[2020-09-06] MEDS: LISINOPRIL 20 MG TAB PO SCH (09:21)
[2020-09-06] MEDS: ACETAMINOPHEN 325 MG TAB PO PRN (22:10)
[2020-09-06] MEDS: ENOXAPARIN 40 MG/0.4 ML INJ SUB-Q SCH (22:11)
[2020-09-07] MEDS: amLODIPine 10 MG TAB PO SCH (10:32)
[2020-09-07] MEDS: NICOTINE 7 MG/24 HR PATCH TD SCH (10:33)
[2020-09-07] MEDS: FERROUS SULFATE 325 MG TAB PO SCH ×2 (10:34→22:04)
[2020-09-07] MEDS: ASPIRIN EC 81 MG TAB PO SCH (10:34)
[2020-09-07] MEDS: LISINOPRIL 20 MG TAB PO SCH (10:35)
[2020-09-07] MEDS: FOLIC ACID 1 MG TAB PO SCH (10:36)
[2020-09-07] MEDS: levETIRAcetam 500 MG TAB PO SCH ×2 (10:40→22:04)
--- NOTE | 2020-09-07 14:29 | Progress Note ---
Subjective Date of service: 09/07/20 Principal diagnosis: CVA Interval history: 75-year-old male who was admitted outside hospital after having new onset slurred speech and aphasia. 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 Currently undergoing home health physical therapy and is able to walk short distances with a walker. Work-up showed a subacute infarct in the right hemisphere on MRI brain. EEG showed disorganized tracings and the patient was started on Keppra. Apparently patient has a reaction to Lipitor and instead takes lovastatin. Patient also has BPH but does not tolerate Flomax. After the patient was medically stabilized they were transferred for further rehabilitation. All available medical records have been reviewed. Plan of care was discussed with patient. Interval History: Patient is participating in therapy and making reasonable progress. Taking rest breaks as needed. +BM. Denies pain, palpitations, dyspnea, cough, N/V, or joint pain. CVA, subacute: Continue monitor patient and provide supportive care. Monitor for worsening neurologic condition, shoulder-hand syndrome, post drug depression other signs and symptoms indicative of need to evaluate patient again with advanced imaging. Continue secondary stroke prevention. Seizure disorder: Seizure precautions have been ordered, patient continues on Keppra. Will need to follow-up with neurology at discharge. No episodes of seizures to this point of the admission. Dysphagia: Patient's diet was downgraded by speech therapy after evaluation. MBS performed yesterday showed continued aspiration with thin liquids. We will continue the patient on current modified diet and adjust as able with speech therapy with a goal of returning back to normal diet if at all possible. Hypertension: Continue to monitor blood pressure with a goal of less than 140/90. Adjust medications as needed to reach goal while avoiding hypotension. Blood pressure is improved. Anemia: This has improved since outside hospital, will continue to monitor and work-up for anemia looking for nutritional deficits. Normocytic currently. Labs show folate and iron deficiency, will replace Protein calorie malnutrition: Have requested dietitian evaluation. Prealbumin significantly decreased. Supplements started Dementia: Appears to be an undiagnosed issue. Patient's daughter states that she suspected this approximately a year ago. Based on what we see, clinically the patient does have dementia. Patient will need to follow-up with neurology as an outpatient for further treatment and work-up. Constipation: Medications escalated for improvement in bowel movements. Patient is having bowel movements now, continue to monitor All records, vitals, labs and medications were reviewed. No other issues per patient, nursing or therapy. Objective - Exam Narrative Exam: MUSCULOSKELETAL SPECIALTY EXAM CONSTITUTIONAL: Well developed, well nourished, appropriately groomed, thin. LEFT hand dominant. RESPIRATORY: Clear to auscultation bilaterally, no increased work of breathing CARDIOVASCULAR: Regular Rate/ Rhythm, no swelling, edema or tenderness in BUE or BLE. All extremities warm. GI: + bowel sounds, soft, NTTP, nondistended. INTEGUMENTARY: Normal, no lesion, rash, masses or bruising noted in extremities. MUSCULOSKELETAL: BUE and BLE normal without defect, crepitus, subluxation, effusion, arthritic changes or TTP. R 4/5 L 4/5 ROM slightly decreased in upper extremities and lower extremities, passive okay Tone no increased tone noted NEURO: Cranial nerves II through XII grossly intact Sensation slightly decreased on right No tremor noted in 4 extremities. Follows 2 step commands. Aphasia not appreciated Dysarthria not appreciated Dysphagia present Neglect not appreciated POSTURE and GAIT: Sitting posture good. Balance appears decreased. Gait slow with narrow-base gait and crouched knees. PSYCH: Alert, oriented x1, affect appears euthymic. Insight appears impaired. - Constitutional Vitals: Vital Signs - 12hr 09/07/20 09/07/20 09/07/20 05:46 07:48 11:58 Temperature 98.3 F 98.2 F 98.5 F Pulse Rate 80 76 66 Respiratory 18 18 18 Rate Blood Pressure 147/74 123/59 107/55 O2 Sat by Pulse 99 98 100 Oximetry - Allied health notes Allied health notes reviewed: nursing, PT, ST, OT FIMS assessment as documented by PT/OT/ST: Grooming Patient cleans teeth/dentures: Yes Patient byrne/brushes hair: Yes Patient washes, rinses and Yes dries face: Patient washes, rinses and Yes dries hands: Patient shaves: No Patient performs (no make-up/ 4/4 (100%) shaving): Grooming FIM Score 4. Minimal Assistance (Patient = 75% or more. Needs touching.) Toileting Patient able to: Adjust clothes before,Clean self,Adjust clothes after Patient able to perform: 3/3 (100%) Toileting FIM Score 4. Minimal Assistance (Patient = 75% or more. Needs touching.) Social interaction/Memory/Problem solving Social Interaction FIM Score 3. Moderate Assistance (Interacts appropriately 50-74%.) Memory FIM Score 4. Minimal Assistance (Recognizes and remembers 75-90%.) Problem Solving FIM Score 3. Moderate Assistance (Solves routine problems 50-74%.) Transfers Mode of Locomotion: Wheelchair Bed/Chair/Wheelchair Transfers 4. Minimal Assistance (Patient = 75% or more. FIM Score Needs touching.) Patient transferred to: Shower Shower Transfers FIM Score 4. Minimal Assistance (Patient = 75% or more. Needs touching.) Locomotion- walk/wheelchair Ambulation Distance 25 Eating Eating FIM Score 5. Supervision/Set-Up (Needs help w/ containers, cutting meat, etc.) Dressing-Upper body Patient retrieves clothing No items: Patient applies/removes UE No: n/a prosthesis or orthosis: Upper Body Dressing FIM Score 4. Minimal Assistance (Patient = 75% or more. Needs touching.) Dressing-lower body Patient retrieves clothing No items: Patient applies/removes LE No: n/a prosthesis or orthosis: Lower Body Dressing FIM Score 4. Minimal Assistance (Patient = 75% or more. Needs touching.) - Labs CBC & Chem 7: 09/05/20 06:08 09/05/20 06:08 Labs: Laboratory Results - last 72 hr 09/05/20 09/05/20 09/05/20 06:08 06:08 06:08 WBC 3.0 L RBC 4.00 Hgb 11.6 L Hct 35.1 L MCV 88 MCH 29 MCHC 33 RDW 15.4 H Plt Count 198 Sodium 139 Potassium 4.3 Chloride 101.7 Carbon Dioxide 30 Anion Gap 12 BUN 15 Creatinine 0.8 Estimated GFR > 60 BUN/Creatinine Ratio 19 Glucose 76 Calcium 9.4 Iron 49 TIBC 273 Ferritin 29.5 L Prealbumin 0.196 L Vitamin B12 Folate 09/05/20 09/05/20 06:08 06:08 WBC RBC Hgb Hct MCV MCH MCHC RDW Plt Count Sodium Potassium Chloride Carbon Dioxide Anion Gap BUN Creatinine Estimated GFR BUN/Creatinine Ratio Glucose Calcium Iron TIBC Ferritin Prealbumin Vitamin B12 512.6 Folate 6.71 L Assessment and Plan CVA, subacute: Continue Secondary Stroke Prevention (Antithrombotic, Statin (Goal LDL-C <70), BP control (Goal <140/90), GLU control (Goal A1c <7), and lifestyle modification). Monitor for recurrent stroke or post-stroke recrudescence. Continue neuromotor therapy as above. Family training when available. Monitor for post stroke depression, cognitive deficits, seizure, dysphagia, aphasia, shoulder hand syndrome, sensory deficits, spasticity, bowel/bladder deficits, sleep disturbance, vision deficits and DVT. Prognosis for recovery and Secondary Stroke Prevention discussed. Follow up with Neurology. No driving until cleared by Neurologist. Dysphagia: Continue speech therapy to improve safe swallowing and advance diet as needed. Patient did not initially have orders for dysphagia diet however these were received with the patient at a later time. Have adjusted meals and speech therapy has further adjusted the patient's diet to include nectar thick liquids. Hypertension: Continue medication. Monitor blood pressure. Adjust medications as needed for normotension. Hold for hypotension. Goal SBP <140, Seizure: Continue seizure precautions and Keppra. Monitor for any adverse events or seizure activity. Patient will need follow-up with neurologist as an outpatient. Anemia: Improving from outside hospital. Continue to monitor CBC and transfuse for hemoglobin less than 7. Deficiencies of iron and folate noted on labs, will replace Protein calorie malnutrition: Consulted dietitian. Continue supplementation and attempt to improve patient's nutritional status. Dementia: Clinical diagnosis based on interaction with the patient and speech therapy testing. Have contacted the daughter and she states she has suspected this for approximately a year. Patient will need to follow-up with neurology as an outpatient for further testing and treatment opportunities. Discussed with the daughter that patient may need further care at home with increased supervision as time goes on. Constipation: Increase medications and monitor for resolution. Hold for loose stools ADL dysfunction: OT will work on improving ability to perform ADLs (including assistive devices) to increase independence and decrease caregiver burden and improve functional transfers and mobility training. Difficulty walking: PT will work on gait training and proper use of assistive devices and advance as appropriate to use of stairs and outside ambulation on uneven surfaces. Unsteadiness on feet: PT will work on improving static and dynamic sitting and standing balance as well as proper use of assistive devices to decrease risk of falls. Abnormality of gait: PT will work to improve safety and efficiency of gait through neuromotor training and gait training along with instruction on proper use of assistive devices. Muscle weakness: PT & OT will work on strengthening exercises to improve functional strength including mixture of closed and open kinetic chain exercises. Debility: PT & OT will work on improving overall functional status to improve participation with ADLs, mobility and social involvement. Fatigue: PT & OT will work on improving endurance through aerobic exercises and therapeutic activity while monitoring patients tolerance for activity and vital signs as needed. DVT ppx: Lovenox Pain: Continue physical modalities in therapy and pain medications as needed to achieve functional pain control. Sleep: Monitor and address as needed. Bowel: Monitor and address as needed. Appetite: Monitor and address as needed. Discharge planning: Pending therapy progress and care plan meeting. Will continue discussion with therapy team, SW, patient and family. We will look to discharge on Saturday. Family will need to come in for family training prior or on day of discharge. Restrictions/ Precautions: Falls, seizure, cognition WB status: FWB Functional Hx: ADLs: Independent Cognition: Independent Mobility: No AD Barriers to Discharge: Decreased mobility and ability to perform self care, balance deficits, weakness Estimated Length of Stay: 1418 days Discharge Destination: Home with family
[2020-09-07] MEDS: ACETAMINOPHEN 325 MG TAB PO PRN (22:04)
[2020-09-07] MEDS: ENOXAPARIN 40 MG/0.4 ML INJ SUB-Q SCH (22:04)
[2020-09-08] MEDS: FERROUS SULFATE 325 MG TAB PO SCH ×2 (08:29→21:37)
[2020-09-08] MEDS: NICOTINE 7 MG/24 HR PATCH TD SCH (08:30)
[2020-09-08] MEDS: LISINOPRIL 20 MG TAB PO SCH (08:30)
[2020-09-08] MEDS: levETIRAcetam 500 MG TAB PO SCH ×2 (08:30→21:37)
[2020-09-08] MEDS: ASPIRIN EC 81 MG TAB PO SCH (08:30)
[2020-09-08] MEDS: amLODIPine 10 MG TAB PO SCH (08:30)
[2020-09-08] MEDS: FOLIC ACID 1 MG TAB PO SCH (08:30)
--- NOTE | 2020-09-08 12:32 | Progress Note ---
Subjective Date of service: 09/08/20 Principal diagnosis: CVA Interval history: 75-year-old male who was admitted outside hospital after having new onset slurred speech and aphasia. 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 Currently undergoing home health physical therapy and is able to walk short distances with a walker. Work-up showed a subacute infarct in the right hemisphere on MRI brain. EEG showed disorganized tracings and the patient was started on Keppra. Apparently patient has a reaction to Lipitor and instead takes lovastatin. Patient also has BPH but does not tolerate Flomax. After the patient was medically stabilized they were transferred for further rehabilitation. All available medical records have been reviewed. Plan of care was discussed with patient. Interval History: Patient is participating in therapy and making reasonable progress. Taking rest breaks as needed. +BM. Denies pain, palpitations, dyspnea, cough, N/V, or joint pain. CVA, subacute: Continue monitor patient and provide supportive care. Monitor for worsening neurologic condition, shoulder-hand syndrome, post drug depression other signs and symptoms indicative of need to evaluate patient again with advanced imaging. Continue secondary stroke prevention. Seizure disorder: Seizure precautions have been ordered, patient continues on Keppra. Will need to follow-up with neurology at discharge. No episodes of seizures to this point of the admission. Dysphagia: Patient's diet was downgraded by speech therapy after evaluation. MBS performed yesterday showed continued aspiration with thin liquids. We will continue the patient on current modified diet and adjust as able with speech therapy with a goal of returning back to normal diet if at all possible. Patient will be going home on current diet with nectar thick liquids and mechanical soft/ground meats. Hypertension: Continue to monitor blood pressure with a goal of less than 140/90. Adjust medications as needed to reach goal while avoiding hypotension. Blood pressure is improved. Anemia: This has improved since outside hospital, will continue to monitor and work-up for anemia looking for nutritional deficits. Normocytic currently. Labs show folate and iron deficiency, will replace Protein calorie malnutrition: Have requested dietitian evaluation. Prealbumin significantly decreased. Supplements started Dementia: Appears to be an undiagnosed issue. Patient's daughter states that she suspected this approximately a year ago. Based on what we see, clinically the patient does have dementia. Patient will need to follow-up with neurology as an outpatient for further treatment and work-up. Constipation: Medications escalated for improvement in bowel movements. Patient is having bowel movements now, continue to monitor All records, vitals, labs and medications were reviewed. No other issues per patient, nursing or therapy. Objective - Exam Narrative Exam: MUSCULOSKELETAL SPECIALTY EXAM CONSTITUTIONAL: Well developed, well nourished, appropriately groomed, thin. LEFT hand dominant. RESPIRATORY: Clear to auscultation bilaterally, no increased work of breathing CARDIOVASCULAR: Regular Rate/ Rhythm, no swelling, edema or tenderness in BUE or BLE. All extremities warm. GI: + bowel sounds, soft, NTTP, nondistended. INTEGUMENTARY: Normal, no lesion, rash, masses or bruising noted in extremities. MUSCULOSKELETAL: BUE and BLE normal without defect, crepitus, subluxation, effusion, arthritic changes or TTP. R 4/5 L 4/5 ROM slightly decreased in upper extremities and lower extremities, passive okay Tone no increased tone noted NEURO: Cranial nerves II through XII grossly intact Sensation slightly decreased on right No tremor noted in 4 extremities. Follows 2 step commands. Aphasia not appreciated Dysarthria not appreciated Dysphagia present Neglect not appreciated POSTURE and GAIT: Sitting posture good. Balance appears decreased. Gait slow with narrow-base gait and crouched knees with RW. PSYCH: Alert, oriented x1, affect appears euthymic. Insight impaired. - Constitutional Vitals: Vital Signs - 12hr 09/08/20 09/08/20 09/08/20 04:42 07:35 11:25 Temperature 97.8 F 98.3 F 98.5 F Pulse Rate 84 68 74 Respiratory 18 18 18 Rate Blood Pressure 102/56 121/60 117/59 O2 Sat by Pulse 97 100 99 Oximetry - Allied health notes Allied health notes reviewed: nursing, PT, ST, OT FIMS assessment as documented by PT/OT/ST: Grooming Patient cleans teeth/dentures: Yes Patient byrne/brushes hair: Yes Patient washes, rinses and Yes dries face: Patient washes, rinses and Yes dries hands: Patient shaves: No Patient performs (no make-up/ /4 (100%) shaving): Grooming FIM Score 4. Minimal Assistance (Patient = 75% or more. Needs touching.) Toileting Patient able to: Adjust clothes before,Clean self,Adjust clothes after Patient able to perform: 3/3 (100%) Toileting FIM Score 4. Minimal Assistance (Patient = 75% or more. Needs touching.) Social interaction/Memory/Problem solving Social Interaction FIM Score 3. Moderate Assistance (Interacts appropriately 50-74%.) Memory FIM Score 4. Minimal Assistance (Recognizes and remembers 75-90%.) Problem Solving FIM Score 3. Moderate Assistance (Solves routine problems 50-74%.) Transfers Mode of Locomotion: Wheelchair Bed/Chair/Wheelchair Transfers 4. Minimal Assistance (Patient = 75% or more. FIM Score Needs touching.) Patient transferred to: Shower Shower Transfers FIM Score 4. Minimal Assistance (Patient = 75% or more. Needs touching.) Locomotion- walk/wheelchair Ambulation Distance 25 Eating Eating FIM Score 5. Supervision/Set-Up (Needs help w/ containers, cutting meat, etc.) Dressing-Upper body Patient retrieves clothing No items: Patient applies/removes UE No: n/a prosthesis or orthosis: Upper Body Dressing FIM Score 4. Minimal Assistance (Patient = 75% or more. Needs touching.) Dressing-lower body Patient retrieves clothing No items: Patient applies/removes LE No: n/a prosthesis or orthosis: Lower Body Dressing FIM Score 4. Minimal Assistance (Patient = 75% or more. Needs touching.) - Labs CBC & Chem 7: 09/05/20 06:08 09/05/20 06:08 Assessment and Plan CVA, subacute: Continue Secondary Stroke Prevention (Antithrombotic, Statin (Goal LDL-C <70), BP control (Goal <140/90), GLU control (Goal A1c <7), and lifestyle modification). Monitor for recurrent stroke or post-stroke recrudescence. Continue neuromotor therapy as above. Family training when available. Monitor for post stroke depression, cognitive deficits, seizure, dysphagia, aphasia, shoulder hand syndrome, sensory deficits, spasticity, bowel/bladder deficits, sleep disturbance, vision deficits and DVT. Prognosis for recovery and Secondary Stroke Prevention discussed. Follow up with Neurology. No driving until cleared by Neurologist. Dysphagia: Continue speech therapy to improve safe swallowing and advance diet as needed. Patient did not initially have orders for dysphagia diet however these were received with the patient at a later time. Patient will go home on mechanical soft with ground meat and nectar thick liquids Hypertension: Continue medication. Monitor blood pressure. Adjust medications as needed for normotension. Hold for hypotension. Goal SBP <140, Seizure: Continue seizure precautions and Keppra. Monitor for any adverse events or seizure activity. Patient will need follow-up with neurologist as an outpatient. Anemia: Improving from outside hospital. Continue to monitor CBC and transfuse for hemoglobin less than 7. Deficiencies of iron and folate noted on labs, will replace Protein calorie malnutrition: Consulted dietitian. Continue supplementation and attempt to improve patient's nutritional status. Dementia: Clinical diagnosis based on interaction with the patient and speech therapy testing. Have contacted the daughter and she states she has suspected this for approximately a year. Patient will need to follow-up with neurology as an outpatient for further testing and treatment opportunities. Discussed with the daughter that patient may need further care at home with increased supervision as time goes on. Constipation: Increase medications and monitor for resolution. Hold for loose stools ADL dysfunction: OT will work on improving ability to perform ADLs (including assistive devices) to increase independence and decrease caregiver burden and improve functional transfers and mobility training. Difficulty walking: PT will work on gait training and proper use of assistive devices and advance as appropriate to use of stairs and outside ambulation on uneven surfaces. Unsteadiness on feet: PT will work on improving static and dynamic sitting and standing balance as well as proper use of assistive devices to decrease risk of falls. Abnormality of gait: PT will work to improve safety and efficiency of gait through neuromotor training and gait training along with instruction on proper use of assistive devices. Muscle weakness: PT & OT will work on strengthening exercises to improve functional strength including mixture of closed and open kinetic chain exercise s. Debility: PT & OT will work on improving overall functional status to improve participation with ADLs, mobility and social involvement. Fatigue: PT & OT will work on improving endurance through aerobic exercises and therapeutic activity while monitoring patients tolerance for activity and vital signs as needed. DVT ppx: Lovenox Pain: Continue physical modalities in therapy and pain medications as needed to achieve functional pain control. Sleep: Monitor and address as needed. Bowel: Monitor and address as needed. Appetite: Monitor and address as needed. Discharge planning: Pending therapy progress and care plan meeting. Will continue discussion with therapy team, SW, patient and family. We will look to discharge on Saturday. Family will need to come in for family training prior or on day of discharge. Restrictions/ Precautions: Falls, seizure, cognition WB status: FWB Functional Hx: ADLs: Independent Cognition: Independent Mobility: No AD Barriers to Discharge: Decreased mobility and ability to perform self care, balance deficits, weakness Estimated Length of Stay: 1418 days Discharge Destination: Home with family
[2020-09-08] MEDS: ENOXAPARIN 40 MG/0.4 ML INJ SUB-Q SCH (21:37)
[2020-09-09] MEDS: ACETAMINOPHEN 325 MG TAB PO PRN (06:04)
[2020-09-09] MEDS: NICOTINE 7 MG/24 HR PATCH TD SCH (08:28)
[2020-09-09] MEDS: FERROUS SULFATE 325 MG TAB PO SCH (08:28)
[2020-09-09] MEDS: ASPIRIN EC 81 MG TAB PO SCH (08:28)
[2020-09-09] MEDS: amLODIPine 10 MG TAB PO SCH (08:29)
[2020-09-09 08:30] VITALS: BP 104/60
[2020-09-09] MEDS: LISINOPRIL 20 MG TAB PO SCH (08:30)
[2020-09-09] MEDS: FOLIC ACID 1 MG TAB PO SCH (08:30)
[2020-09-09] MEDS: levETIRAcetam 500 MG TAB PO SCH (08:30)
--- NOTE | 2020-09-09 08:30 | Discharge Summary ---
Providers - Providers Date of Admission: 08/31/20 12:42 Date of discharge: 09/09/20 Attending physician: ADRIA NOLASCO III, MD 08/31/20 12:42 Occupational Therapy Evaluate and Treat [CONS] Routine Comment: Reason For Exam: ADL dysfunction Physical Therapy Evaluation and Treat [CONS] Routine Comment: Reason For Exam: Mobility Dysfunction 08/31/20 12:50 Consult to Case Management [CONS] Routine Services Needed at Discharge: Home Health Services Notified:: cm notified Speech Therapy Evaluation and Treat [CONS] Routine Reason For Exam: CVA, Assess/Treat Speech/Cog/Swallow 09/03/20 09:58 Consult to Dietitian/Nutrition [CONS] Routine Physician Instructions: Reason For Exam: Reason for Consult: Malnutrition Primary care physician: VERA CONNER Hospitalization Condition: Good Pertinent studies: Modified barium swallow: Performed on 09/05/2020 showed aspiration witnessed with thin liquids. No aspiration noted with nectar, pure or semisolid consistencies. Premature spillage seen with all consistencies. Hospital course: 75-year-old male who was admitted outside hospital after having new onset slurred speech and aphasia. 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 Currently undergoing home health physical therapy and is able to walk short distances with a walker. Work-up showed a subacute infarct in the right hemisphere on MRI brain. EEG showed disorganized tracings and the patient was started on Keppra. Apparently patient has a reaction to Lipitor and instead takes lovastatin. Patient also has BPH but does not tolerate Flomax. After the patient was medically stabilized they were transferred for further rehabilitation. CVA, subacute: Continue monitor patient and provide supportive care. Continue secondary stroke prevention. Seizure disorder: Seizure precautions, patient continues on Keppra. Will need to follow-up with neurology at discharge. No episodes of seizures during this admission. Dysphagia: Patient's diet was downgraded by speech therapy after evaluation. MBS performed 09/05/20 showed continued aspiration with thin liquids. We will continue the patient on current modified diet and adjust as able with speech therapy with a goal of returning back to normal diet if at all possible. Patient will be going home on current diet with nectar thick liquids and mechanical soft/ground meats. Hypertension: Continue to monitor blood pressure with a goal of less than 140/90. Adjust medications as needed to reach goal while avoiding hypotension. Blood pressure is stable Anemia: This has improved since outside hospital, will continue to monitor. Normocytic currently. Labs show folate and iron deficiency, will replace. Would recommend recheck at PCP Protein calorie malnutrition: Dietitian evaluation. Prealbumin significantly decreased. Supplements started Dementia: Appears to be an undiagnosed issue. Patient's daughter states that she suspected this approximately a year ago. Based on what we see, clinically the patient does have dementia. Patient will need to follow-up with neurology as an outpatient for further treatment and work-up. Constipation: Medications escalated for improvement in bowel movements. Patient is having bowel movements now, continue to monitor Disposition: [id number] HOME UNDER HOME TH Final Discharge Diagnosis (Prints w/discharge instructions): Debility, Dementia, Chronic CVA, Dysphagia, Anemia, Hypertension Time spent for discharge: >30 mins Core Measure Documentation - Palliative Care Palliative Care/ Comfort Measures: Not Applicable - Core Measures Any of the following diagnoses?: stroke (Chronic CVA), history only - Stroke Discharge Requirements Statin for LDL = or >70 mg/dl on DC: Yes Anticoag for atrial fib/atrial flutter: Not Applicable Antithrombotic for ischemic stroke: Yes Exam - Physical Exam Narrative exam: MUSCULOSKELETAL SPECIALTY EXAM CONSTITUTIONAL: Well developed, well nourished, appropriately groomed, thin. LEFT hand dominant. RESPIRATORY: Clear to auscultation bilaterally, no increased work of breathing CARDIOVASCULAR: Regular Rate/ Rhythm, no swelling, edema or tenderness in BUE or BLE. All extremities warm. GI: + bowel sounds, soft, NTTP, nondistended. INTEGUMENTARY: Normal, no lesion, rash, masses or bruising noted in extremities. MUSCULOSKELETAL: BUE and BLE normal without defect, crepitus, subluxation, effusion, arthritic changes or TTP. R 4/5 L 4/5 ROM slightly decreased in upper extremities and lower extremities, passive okay Tone no increased tone noted NEURO: Cranial nerves II through XII grossly intact Sensation slightly decreased on right No tremor noted in 4 extremities. Follows 2 step commands. Aphasia not appreciated Dysarthria not appreciated Dysphagia present Neglect not appreciated POSTURE and GAIT: Sitting posture good. Balance appears decreased. Gait slow with narrow-base gait and crouched knees with RW. PSYCH: Alert, oriented x1, affect appears euthymic. Insight impaired. - Constitutional Vitals: Temp Pulse Resp BP Pulse Ox 98.0 F 68 18 104/60 100 09/09/20 07:00 09/09/20 08:30 09/09/20 07:00 09/09/20 08:30 09/09/20 07:00 Plan Activity: up only with assistance, fall precautions, other (No driving based on diagnosis of dementia, seizure and chronic CVA) Diet: other (Heart healthy diet with mechanical soft foods, ground meats and nectar thick liquids) Special Instructions: record daily BP diary, physical therapy, occupational therapy, home health RN Durable Medical Equipment Needed Upon Discharge: Bedside Commode Care Plan Goals: Patient will need to follow-up with neurology as an outpatient for monitoring of seizure activity and possibly removal of Keppra. Patient has symptoms consistent with dementia and would benefit from full work-up by neurology for this as well. Patient will need follow-up with speech therapy at some point in the future for possible further work to improve dysphagia. Until he is cleared by speech therapy with a repeat modified barium swallow, the patient should continue on a mechanical soft diet with ground meats and nectar thick liquids. Patient was counseled on smoking cessation and given various options for support to quit. Patient states that he will most likely go back to smoking once he returns home as he enjoys that. Recommended that he continue to use the nicotine patch if he decides to quit. Based on him having dementia and wanting to continue to smoke I will not discharge him with a prescription for the nicotine patch to avoid him utilizing the patch and smoking at the same time. Follow up with: VERA CONNER MD [Primary Care Provider] - 7 Days Prescriptions: amLODIPine 10 mg PO QDAY #30 tablet Ferrous Sulfate [Feosol 325 MG tab] 325 mg PO BID #60 tablet Folic Acid [Folvite] 1 mg PO QDAY #30 tablet Aspirin EC [Halfprin EC] 81 mg PO QDAY #30 tablet levETIRAcetam [Keppra TAB] 500 mg PO BID #60 tablet Sennosides Tab [Senokot] 8.6 mg PO Q12H PRN #30 tablet PRN Reason: Constipation lisinopriL [Zestril TAB] 20 mg PO QDAY #30 tablet
== END 2020-09-09 12:11 | disposition home health service (06) | DRG 65 ==
LOC: 3A 11:35 → UNDOADMIN 11:35 → 3B 12:42
PROVIDERS: ADMIT Physical Medicine & Rehabilitation; ATTEND Physical Medicine & Rehabilitation
DX: I63.9 Cerebral infarction, unspecified (principal); E46 Unspecified protein-calorie malnutrition; R53.81 Other malaise; R47.01 Aphasia; R13.10 Dysphagia, unspecified; Z68.22 Body mass index [BMI] 22.0-22.9, adult; I10 Essential (primary) hypertension; F03.90 Unspecified dementia, unspecified severity, without behavioral disturbance, psychotic disturbance, mood disturbance, and anxiety; D64.9 Anemia, unspecified; R26.2 Difficulty in walking, not elsewhere classified; R26.9 Unspecified abnormalities of gait and mobility; M62.81 Muscle weakness (generalized); R13.0 Aphagia; G40.909 Epilepsy, unspecified, not intractable, without status epilepticus; K59.00 Constipation, unspecified; I69.398 Other sequelae of cerebral infarction
CPT/HCPCS: 36415; 74230; 80048; 80053; 82607; 82728; 82747; 83550; 84134; 85007; 85025; 85027; G0378; J1650